=== PATIENT | female | born 1930 | race Caucasian/White ===

== ENCOUNTER 2017-09-19 21:03 | Emergency (ER) | payer MEDICARE ==
[2017-09-19] MEDS ORDERED: diPHENhydraMINE PO* 25 MG PO ONE (21:27)
--- NOTE | 2017-09-19 21:51 | ED ---
Allergic Reaction/Systemic - HPI Summary HPI Summary: Patient is an otherwise healthy 87-year-old female with no known allergies and takes no medications presenting to the ED with left lower lip swelling 2 hours. She states she took 400 mg ibuprofen approximately 3 hours prior to the lip swelling as well as cranberry juice, but denies anything else. She states she is taking ibuprofen before but has been several months to years. Last time she took cranberry juice was approximately 70 years ago. She denies any new environments, lotions, lipsticks or other topicals. She states she first felt her throat feeling scratchy and approximately 1 hour after this she developed the lower lip swelling. Denies any difficulty swallowing or shortness of breath. Denies any hives or urticaria. Son is at bedside. - History of Current Complaint Chief Complaint: EDAllergicReaction Time Seen by Provider: 09/19/17 21:12 Hx Obtained From: Patient Onset/Duration: Sudden Onset Timing: Constant Severity Initially: Mild Severity Currently: Mild Pain Intensity: 0 Pain Scale Used: 0-10 Numeric Character: Swelling - lower lip Associated Signs And Symptoms: Positive: Negative - Related Hx Possible Reaction To: Unknown - Allergies/Home Medications Allergies/Adverse Reactions: Allergies Allergy/AdvReac Type Severity Reaction Status Date / Time cranberry Allergy Unknown Verified 09/19/17 21:10 Reaction Details Home Medications: Home Medications NK [No Home Medications Reported] 09/19/17 [History Confirmed 09/19/17] PMH/Surg Hx/FS Hx/Imm Hx Previously Healthy: Yes - Surgical History Surgery Procedure, Year, and Place: Lower Back surgery - Immunization History Hx Pertussis Vaccination: No Immunizations Up to Date: Unable to Obtain/Confirm Infectious Disease History: No Infectious Disease History: Denies: History Other Infectious Disease, Traveled Outside the [place] in Last 30 Days - Social History Occupation: Unemployed Lives: With Family Alcohol Use: None Hx Substance Use: No Substance Use Type: Reports: None Hx Tobacco Use: No Smoking Status (MU): Never Smoked Tobacco Review of Systems Constitutional: Negative Negative: Fever, Chills, Fatigue, Skin Diaphoresis ENT: Other - lower lip swelling Negative: Palpitations, Chest Pain Negative: Shortness Of Breath, Cough Negative: Abdominal Pain, Vomiting, Diarrhea Genitourinary: Negative Positive: no symptoms reported, see HPI Musculoskeletal: Negative Skin: Negative Negative: Headache, Weakness, Paresthesia, Numbness All Other Systems Reviewed And Are Negative: Yes Physical Exam Triage Information Reviewed: Yes Vital Signs On Initial Exam: Initial Vitals Temp Pulse Resp BP Pulse Ox 98.3 F 78 18 163/78 96 09/19/17 21:05 09/19/17 21:05 09/19/17 21:05 09/19/17 21:05 09/19/17 21:05 Vital Signs Reviewed: Yes Appearance: Positive: Well-Appearing, Well-Nourished Skin: Positive: Warm, Skin Color Reflects Adequate Perfusion Head/Face: Positive: Normal Head/Face Inspection Eyes: Positive: Normal, SHARONDA, Conjunctiva Clear ENT: Positive: Other - lower lip swelling without tongue swelling; airway patent Neck: Positive: Supple, No Lymphadenopathy Respiratory/Lung Sounds: Positive: Clear to Auscultation, Breath Sounds Present Cardiovascular: Positive: Normal, RRR, Pulses are Symmetrical in both Upper and Lower Extremities Neurological: Positive: Normal, Sensory/Motor Intact, Alert, Oriented to Person Place, Time, Speech Normal Psychiatric: Positive: Normal, Affect/Mood Appropriate Diagnostics - Vital Signs Vital Signs Temp Pulse Resp BP Pulse Ox 09/19/17 21:05 98.3 F 78 18 163/78 96 - Laboratory Lab Statement: Any lab studies that have been ordered have been reviewed, and results considered in the medical decision making process. Allergic Reaction Course/Dx - Course Course Of Treatment: During the course of treatment, the patient is evaluated for lower lip swelling. She states she took ibuprofen approximately 3 hours prior to the lip swelling. She also endorses some throat scratching. Denies any dysphagia, odynophagia or shortness of breath. On physical examination, pharynx normal, airway patent, lungs CTA. RRR. She says she takes no medications at baseline. She has taken ibuprofen in the past, but nothing current. By the time of arrival, son states the lip swelling has decreased significantly in size, however patient states she is still feeling some slight scratching to the throat, however this is improved over the past few hours. She did not take any medication for relief [employer]IST[employer]. She is given 25mg benadryl on arrival. Approximately one hour after the Benadryl medication, patient is feeling much improved with reduction in the lip swelling. As NSAIDs are generally known to cause angioedema and several individuals, I have asked her to avoid this medication the future. She will return for any worsening or changing symptoms. - Diagnoses Differential Diagnosis/HQI/PQRI: Positive: Anaphylaxis, Angioedema, Local Allergic Reaction Provider Diagnoses: Angioedema Discharge - Sign-Out/Discharge Documenting (check all that apply): Discharge/Admit/Transfer - Discharge Plan Condition: Stable Disposition: HOME Patient Education Materials: Angioedema (ED) Referrals: No Primary Care Phys,NOPCP [Primary Care Provider] - - Billing Disposition and Condition Condition: STABLE Disposition: Home
[2017-09-19 22:52] VITALS: BP 128/74
== END 2017-09-19 22:51 | disposition home or self-care (01) ==
LOC: ED 21:03
DX: T78.3XXA Angioneurotic edema, initial encounter (principal)
CPT/HCPCS: 99282; A9270-GY

== ENCOUNTER 2018-03-29 14:37 | Inpatient (IN) | payer MEDICARE ==
[2018-03-29 18:21] LABS: ABS Basophils 0 10^3/ul (0-0.2); ABS Eosinophils 0 10^3/ul (0-0.6); ABS Lymphocytes 0.9 10^3/ul (1.0-4.8); ABS Monocytes 0.5 10^3/ul (0-0.8); ABS Neutrophils 4.3 10^3/ul (1.5-7.7); ABS Nucleated RBC 0 10^3/ul; Eosinophil % 0.5 %; Hematocrit 42 % (35-47); Hemoglobin 13.9 g/dl (12.0-16.0); Lymphocyte % 15.5 %; Mean Corpuscular HGB Conc 33 g/dl (31-36); Mean Corpuscular Hemoglobin 29 pg (27-31); Mean Corpuscular Volume 87 fL (80-97); Mean Platelet Volume 7.9 fL (7.4-10.4); Nucleated Red Blood Cells % 0.1; Platelet Count 320 10^3/ul (150-450); Red Blood Count 4.78 10^6/ul (4.00-5.40); Red Cell Distribution Width 14 % (10.5-15); White Blood Count 5.7 10^3/ul (3.5-10.8)
[2018-03-29 18:38] LABS: Troponin I 0.02 ng/mL (<0.04)
[2018-03-29 18:41] LABS: Albumin/Globulin Ratio 1.3 (1-3); BUN/Creatinine Ratio 30.3 (8-20); Calcium 9.7 mg/dL (8.6-10.3); EGFR African American 86.9 (>60); EGFR Non-African American 71.8 (>60); Potassium 3.6 mmol/L (3.5-5.0); Total Bilirubin 0.9 mg/dL (0.2-1.0)
[2018-03-29 18:50] LABS: TSH (Thyroid Stimulating Horm) 16.84 mcIU/mL (0.34-5.60)
[2018-03-29] MEDS ORDERED: Gadoteridol* (CONTRAST) 279.3 MG/ML 10 ML IV ONE (18:54)
[2018-03-29] MEDS ORDERED: NS 0.9% 1000 ML* 1,000 ML IV ONE (19:12)
[2018-03-29 19:41] LABS: C Reactive Protein 42.07 mg/L (<8.01)
[2018-03-29 20:09] LABS: Urine Appearance Cloudy; Urine Bacteria 3+ (Absent); Urine Bilirubin Negative (Negative); Urine Blood 1+ (Negative); Urine Color Yellow; Urine Glucose Negative (Negative); Urine Ketones Negative (Negative); Urine Nitrite Negative (Negative); Urine Protein 1+(30 mg/dL) (Negative); Urine Red Blood Cell 1+(3-5/hpf) (Absent); Urine Specific Gravity 1.015 (1.010-1.030); Urine Squamous Epithelial Cell Present (Absent); Urine Urobilinogen Negative (Negative); Urine White Blood Cell 3+(>20/hpf) (Absent)
[2018-03-29] MEDS ORDERED: Senna TAB PO PRN (22:40)
[2018-03-29] MEDS ORDERED: Morphine VIAL* 4 MG/ML VIAL (1 ml vial) IV PRN (22:40)
[2018-03-29] MEDS ORDERED: Cyclobenzaprine TAB* 10 MG PO PRN (22:40)
[2018-03-29] MEDS ORDERED: Ondansetron INJ* 2 MG/ML VIAL IV PRN (22:40)
[2018-03-29] MEDS ORDERED: Acetaminophen TAB* 325 MG PO PRN (22:40)
[2018-03-29] MEDS ORDERED: oxyCODONE TAB* 5 MG TAB PO PRN (22:40)
[2018-03-29] MEDS ORDERED: cefTRIAXone(*) 1 GM ADVAN/BAG ONE (22:53)
[2018-03-29] MEDS ORDERED: cefTRIAXone(*) 1 GM in NS 0.9% 50 ML* 50 ML IVPB SCH (23:00)
--- NOTE | 2018-03-29 23:40 | ED ---
Neurological HPI - HPI Summary HPI Summary: Patient sent by the CC to ED complains of bilateral lower extremity weakness and decreasing mobility 2 months. Prior to past 2 months patient ambulates at baseline with a walker. Patient states she is now unable to walk or stand up now , and has decreased sensation to left side. Patient states chronic back pain which has also increased in the past few days, controlled by ibuprofen. Family states patient has not seen PCP in 7 years. History of spinal surgery but unclear what kind. Possible history of cauda equina. Denies trauma, slurred speech, facial droop, AMS, upper extremity weakness, confusion, URIBE, fever, cough , sore throat, CP, SOB, N/V/D, abdominal pain, change in urine, change in BM. Patient does admit to urinating and defecating less as she is unable to get to the bathroom on her own. Medical history is hypothyroid, osteoporosis, back pain. - History of Current Complaint Chief Complaint: EDNeurologicalDeficit Stated Complaint: NUMBNESS IN LEGS Time Seen by Provider: 03/29/18 16:49 Hx Obtained From: Patient, Family/Accounts Payable Specialist Onset/Duration: Gradual Onset, Started weeks ago Timing: Constant Onset Severity: Moderate Current Severity: Moderate Seizure Severity: Moderate Neurological Deficit Location: RLE, LLE Pain Intensity: 5 Pain Scale Used: 0-10 Numeric Character: Weak, Paresthesia Associated Signs and Symptoms: Positive: Weakness TPA Considered: No - Allergy/Home Medications Allergies/Adverse Reactions: Allergies Allergy/AdvReac Type Severity Reaction Status Date / Time cranberry Allergy Unknown Verified 03/29/18 14:59 Reaction Details PMH/Surg Hx/FS Hx/Imm Hx Endocrine/Hematology History: Denies: Hx Diabetes Cardiovascular History: Denies: Hx Pacemaker/ICD History: Denies: Hx Dialysis Musculoskeletal History: Reports: Hx Back Problems Sensory History: Denies: Hx Eye Prosthesis, Hx Hearing Aid EENT History: Denies: Hx Deafness Neurological History: Denies: Hx Developmental Delay Psychiatric History: Denies: Hx Autism, Hx Panic Disorder - Surgical History Surgery Procedure, Year, and Place: tonsils. lsp discetomy Infectious Disease History: No Infectious Disease History: Denies: History Other Infectious Disease, Traveled Outside the [place] in Last 30 Days - Social History Alcohol Use: None Hx Substance Use: No Substance Use Type: Reports: None Hx Tobacco Use: No Smoking Status (MU): Never Smoked Tobacco Review of Systems Constitutional: Negative Eyes: Negative ENT: Negative Cardiovascular: Negative Respiratory: Negative Gastrointestinal: Negative Genitourinary: Negative Musculoskeletal: Negative Skin: Negative Positive: Weakness Psychological: Normal All Other Systems Reviewed And Are Negative: Yes Physical Exam - Summary Physical Exam Summary: Patient has positive pulses in bilateral feet. Legs are warm and soft to palpation. On tender. Positive sensation on bilateral lower extremities. Patient is able to move bilateral feet and minimally flex bilateral hips and knees. Patient cannot lift legs off the bed. Neuro exam normal. Abdomen soft nontender. No ecchymosis, erythema, swelling, deformity noted to the lower back. Triage Information Reviewed: Yes Vital Signs On Initial Exam: Initial Vitals Temp Pulse Resp BP Pulse Ox 97.9 F 86 16 128/76 94 03/29/18 14:52 03/29/18 14:52 03/29/18 14:52 03/29/18 14:52 03/29/18 14:52 Vital Signs Reviewed: Yes Appearance: Positive: Well-Appearing Skin: Positive: Warm Head/Face: Positive: Normal Head/Face Inspection Eyes: Positive: Normal ENT: Positive: Normal ENT inspection Neck: Positive: Supple Respiratory/Lung Sounds: Positive: Clear to Auscultation Cardiovascular: Positive: Normal Abdomen Description: Positive: Nontender Musculoskeletal: Positive: Normal Neurological: Positive: Normal Psychiatric: Positive: Normal AVPU Assessment: Alert - [place] Coma Scale Best Eye Response: 4 - Spontaneous Best Motor Response: 6 - Obeys Commands Best Verbal Response: 5 - Oriented Coma Scale Total: 15 Diagnostics - Vital Signs Vital Signs Temp Pulse Resp BP Pulse Ox 03/29/18 22:36 88 17 141/79 100 03/29/18 20:09 98.4 F 87 17 145/72 96 03/29/18 16:43 92 18 128/83 97 03/29/18 14:52 97.9 F 86 16 128/76 94 - Laboratory Lab Results: Lab Results 03/29/18 03/29/18 03/29/18 Range/Units 17:08 17:08 17:08 WBC 5.7 (3.5-10.8) 10^3/ul RBC 4.78 (4.00-5.40) 10^6/ul Hgb 13.9 (12.0-16.0) g/dl Hct 42 (35-47) % MCV 87 (80-97) fL MCH 29 (27-31) pg MCHC 33 (31-36) g/dl RDW 14 (10.5-15) % Plt Count 320 (150-450) 10^3/ul MPV 7.9 (7.4-10.4) fL Neut % (Auto) 74.5 % Lymph % (Auto) 15.5 % [place] % (Auto) 8.9 % Eos % (Auto) 0.5 % Baso % (Auto) 0.6 % Absolute Neuts (auto) 4.3 (1.5-7.7) 10^3/ul Absolute Lymphs (auto) 0.9 L (1.0-4.8) 10^3/ul Absolute Monos (auto) 0.5 (0-0.8) 10^3/ul Absolute Eos (auto) 0 (0-0.6) 10^3/ul Absolute Basos (auto) 0 (0-0.2) 10^3/ul Absolute Nucleated RBC 0 10^3/ul Nucleated RBC % 0.1 Sodium 139 (135-145) mmol/L Potassium 3.6 (3.5-5.0) mmol/L Chloride 102 (101-111) mmol/L Carbon Dioxide 29 (22-32) mmol/L Anion Gap 8 (2-11) mmol/L BUN 23 (6-24) mg/dL Creatinine 0.76 (0.51-0.95) mg/dL Est GFR ( Amer) 86.9 (>60) Est GFR (Non-Af Amer) 71.8 (>60) BUN/Creatinine Ratio 30.3 H (8-20) Glucose 119 H (70-100) mg/dL Lactic Acid 1.7 (0.5-2.0) mmol/L Calcium 9.7 (8.6-10.3) mg/dL Total Bilirubin 0.90 (0.2-1.0) mg/dL AST 27 (13-39) U/L ALT 14 (7-52) U/L Alkaline Phosphatase 221 H (34-104) U/L Troponin I 0.02 (<0.04) ng/mL C-Reactive Protein 42.07 H (<8.01) mg/L B-Natriuretic Peptide (<=100) pg/mL Total Protein 7.0 (6.4-8.9) g/dL Albumin 4.0 (3.2-5.2) g/dL Globulin 3.0 (2-4) g/dL Albumin/Globulin Ratio 1.3 (1-3) TSH 16.84 H (0.34-5.60) mcIU/mL Thyroxine (T4) Pending Total T3 Pending Urine Color Urine Appearance Urine pH (5-9) Ur Specific [place] (1.010-1.030) Urine Protein (Negative) Urine Ketones (Negative) Urine Blood (Negative) Urine Nitrate (Negative) Urine Bilirubin (Negative) Urine Urobilinogen (Negative) Ur Leukocyte Esterase (Negative) Urine WBC (Auto) (Absent) Urine RBC (Auto) (Absent) Ur Squamous Epith Cells (Absent) Urine Bacteria (Absent) Urine Glucose (Negative) 03/29/18 03/29/18 03/29/18 Range/Units 17:52 19:53 20:24 WBC (3.5-10.8) 10^3/ul RBC (4.00-5.40) 10^6/ul Hgb (12.0-16.0) g/dl Hct (35-47) % MCV (80-97) fL MCH (27-31) pg MCHC (31-36) g/dl RDW (10.5-15) % Plt Count (150-450) 10^3/ul MPV (7.4-10.4) fL Neut % (Auto) % Lymph % (Auto) % [place] % (Auto) % Eos % (Auto) % Baso % (Auto) % Absolute Neuts (auto) (1.5-7.7) 10^3/ul Absolute Lymphs (auto) (1.0-4.8) 10^3/ul Absolute Monos (auto) (0-0.8) 10^3/ul Absolute Eos (auto) (0-0.6) 10^3/ul Absolute Basos (auto) (0-0.2) 10^3/ul Absolute Nucleated RBC 10^3/ul Nucleated RBC % Sodium (135-145) mmol/L Potassium (3.5-5.0) mmol/L Chloride (101-111) mmol/L Carbon Dioxide (22-32) mmol/L Anion Gap (2-11) mmol/L BUN (6-24) mg/dL Creatinine (0.51-0.95) mg/dL Est GFR ( Amer) (>60) Est GFR (Non-Af Amer) (>60) BUN/Creatinine Ratio (8-20) Glucose (70-100) mg/dL Lactic Acid (0.5-2.0) mmol/L Calcium (8.6-10.3) mg/dL Total Bilirubin (0.2-1.0) mg/dL AST (13-39) U/L ALT (7-52) U/L Alkaline Phosphatase (34-104) U/L Troponin I 0.01 (<0.04) ng/mL C-Reactive Protein (<8.01) mg/L B-Natriuretic Peptide 116 H (<=100) pg/mL Total Protein (6.4-8.9) g/dL Albumin (3.2-5.2) g/dL Globulin (2-4) g/dL Albumin/Globulin Ratio (1-3) TSH (0.34-5.60) mcIU/mL Thyroxine (T4) Total T3 Urine Color Yellow Urine Appearance Cloudy Urine pH 5.0 (5-9) Ur Specific [place] 1.015 (1.010-1.030) Urine Protein 1+(30 mg/dl) A (Negative) Urine Ketones Negative (Negative) Urine Blood 1+ A (Negative) Urine Nitrate Negative (Negative) Urine Bilirubin Negative (Negative) Urine Urobilinogen Negative (Negative) Ur Leukocyte Esterase 3+ A (Negative) Urine WBC (Auto) 3+(>20/hpf) A (Absent) Urine RBC (Auto) 1+(3-5/hpf) A (Absent) Ur Squamous Epith Cells Present A (Absent) Urine Bacteria 3+ A (Absent) Urine Glucose Negative (Negative) Result Diagrams: 03/29/18 17:08 03/29/18 17:08 Lab Statement: Any lab studies that have been ordered have been reviewed, and results considered in the medical decision making process. Course/Dx - Course Course Of Treatment: Patient sent by the CC to ED complains of bilateral lower extremity weakness and decreasing mobility 2 months. Prior to past 2 months patient ambulates at baseline with a walker. Patient states she is now unable to walk or stand up now, and has decreased sensation to left side. Patient states chronic back pain which has also increased in the past few days, controlled by ibuprofen. Family states patient has not seen PCP in 7 years. History of spinal surgery but unclear what kind. Possible history of cauda equina. Denies trauma, slurred speech, facial droop, AMS, upper extremity weakness, confusion, URIBE, fever, cough, sore throat, CP, SOB, N/V/D, abdominal pain, change in urine, change in BM. Patient does admit to urinating and defecating less as she is unable to get to the bathroom on her own. Medical history is hypothyroid, osteoporosis, back pain. Physical exam:Patient has positive pulses in bilateral feet. Legs are warm and soft to palpation. On tender. Positive sensation on bilateral lower extremities. Patient is able to move bilateral feet and minimally flex bilateral hips and knees. Patient cannot lift legs off the bed. Neuro exam normal. Abdomen soft nontender. No ecchymosis, erythema, swelling, deformity noted to the lower back. Vital signs within normal limits. BUN/CR ratio of 30. TSH 16. Alkaline phosphatase 221. CRP 42. BNP 116. UA positive for possible UTI. Cultures pending. Chest x- ray concerning for mass left lower lobe. EKG sinus rhythm. Troponin negative. KUB positive for significant stable. CT brain unremarkable. MRI/MRA lumbar spine concerning for possible primary or metastatic lesion and lumbar spine. Patient admitted to hospitalists for further workup of suspicious masses, inability to ambulate. - Diagnoses Provider Diagnoses: Lower extremity weakness, Hypothyroid, Constipation Discharge - Sign-Out/Discharge Documenting (check all that apply): Patient Departure - Discharge Plan Condition: Good Disposition: ADMITTED TO [facility] - Billing Disposition and Condition Condition: GOOD Disposition: Admitted to [facility]
[2018-03-29 23:49] LABS: T4, Total 7.59 g/dL (6.09-12.23)
--- NOTE | 2018-03-30 02:10 | HP ---
CC: Dr. Librado Rey, [facility] * ADMISSION HISTORY AND PHYSICAL: DATE OF ADMISSION: 03/29/18 PRIMARY CARE PROVIDER: Currently only Dr. Librado Rey at the [facility]. MY ATTENDING WHILE IN THE HOSPITAL: Dr. Bety Gomes.* (DICTATED BY MARGUERITE MCCLELLAND) CHIEF COMPLAINT: Worsening lower extremity weakness x6 weeks. HISTORY OF PRESENT ILLNESS: Ms. Wynn is an 87-year-old female with a past medical history significant only for cauda equina syndrome in 2003 with a laminectomy and repair at that time with Dr. Treviño at this facility and hypothyroidism who in the beginning of February was able to walk with approximately 6 feet with her walker. The patient had been using a walker and had limited mobility since her 2003 surgery, but rather quickly began to deteriorate with eventually not being able to get out of bed at all. The patient also had increasing pain in her back with allodynia and pain radiating down into her upper and lower legs. The sensation of the patient's legs eventually began to deteriorate and now they feel essentially numb. The patient has been having increased difficulty with urination having bowel movements with pain and straining with bowel movements and no bowel movements for the last 3 days. The patient has been having a feeling of incomplete emptying with her urinary bladder. The patient has not been having issues with fevers, chills. The patient has not lost weight. The patient has had a good appetite. The patient had only taken ibuprofen for her pain, but she states that sometimes her pain can be severe. The patient has been taking no other routine medications. The patient has been taking several supplements. The patient has not followed with her primary care doctor in 5 to 6 years. The patient's primary caregiver is her son and her grandson who have been having to carry her recently as she has been unable to stand for herself. The patient was trying to reestablish with primary care doctor and was sent to Dr. Librado Rey at the [facility] for a transition of care and was referred to the emergency department for lower extremity weakness and flaccidity. In the emergency department, the patient had a lumbar spine MRI which showed extensive neural foraminal and spinal canal stenosis at L1 through L5 as well as a large mass at the sacroiliac joint and possible metastatic lesions in the vertebral bodies. Her chest x-ray also showed a pleural base mass. All these findings were discussed with the patient at length as well as their poor prognosis and possibly limited treatment options and the patient and family stated that they would like to have a full evaluation and possible treatment of the patient's tumors if possible. However, when this was discussed with the patient that expediting this workup would require emergency department to emergency department transfer tonight. The patient and family stated that they refuse this and would like to be admitted to this institution and be presented with options before being transferred. It was discussed with the patient that this could delay her treatment by days to weeks and result in a prolonged hospitalization and they stated they understood but they were not willing to be transferred from emergency department to emergency department tonight. As such , the patient will be admitted to the hospital. PAST MEDICAL HISTORY: 1. Cauda equina syndrome, status post laminectomy in 2003. 2. Hypothyroidism. PAST SURGICAL HISTORY: L4-L5 laminectomy in 2003. MEDICATIONS: 1. Ibuprofen 200 mg p.o. q.6 hours as needed. 2. Various supplements, the only one they came up with the name of is MitoBoost. ALLERGIES: CRANBERRIES. FAMILY HISTORY: The patient not able to elucidate on her family history. SOCIAL HISTORY: The patient is a former smoker in her teenage years. The patient denies alcohol or drug use. 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 The patient is and has only 1 child. REVIEW OF SYSTEMS: A 14-point review of systems was reviewed and is negative except as above in the HPI. Extra emphasis was placed on systemic symptoms possibly related to malignancy and none of these were present per the patient. PHYSICAL EXAMINATION GENERAL: The patient is an 87-year-old female who appears stated age, sitting comfortably in bed, in no acute distress. VITAL SIGNS: At the time of evaluation, temperature 98.4, pulse rate 87, respiratory rate 17, oxygen saturation 96% on room air, blood pressure 145/72. HEENT: Head: Normocephalic, atraumatic. Sclerae anicteric. No conjunctival injection. Nasal mucosa moist. Oral mucosa moist. No pharyngeal erythema, discharge, or exudate. NECK: Supple, nontender. No lymphadenopathy. No carotid bruit auscultated. No JVD. No spinous process tenderness. RESPIRATORY: Clear to auscultation bilaterally. No wheezes, rales, or rhonchi. Good air exchange bilaterally. CARDIAC: Regular rate and rhythm. Grade 2/6 systolic ejection murmur heard best at the right upper sternal border. Pulses 2+ in the bilateral dorsalis pedis, posterior tibialis, and radial areas. A 1+ bilateral lower extremity edema. ABDOMEN: Soft, tender to palpation in the bilateral upper quadrants. No rebound or guarding. No rigidity. GENITOURINARY: No suprapubic or CVA tenderness. NEUROLOGIC: Cranial nerves II through XII intact. Strength 5/5 in bilateral upper extremities distally and proximally, strength 0/5 in the bilateral lower extremities distally, strength 2/5 in the left lower extremity with flexion. No other movement is able to be elicited from the bilateral lower extremities. The patient has involuntary spasm which occurs in her right lower extremity. Reflexes 2+ in bilateral biceps areas, reflexes unable to be elicited in the bilateral patellar or Achilles areas. Babinski sign is upgoing in the left lower extremity, unable to be elicited in the right lower extremity. Alert and oriented x3. PSYCHIATRIC: Pleasant and cooperative. SKIN: Senile purpura and no other rashes. DIAGNOSTIC STUDIES/LAB DATA: White blood cell count 5.7, hemoglobin 13.9, platelet count 320. Sodium 139, potassium 3.6, chloride 102, carbon dioxide 29 , anion gap 8, BUN 23, creatinine 0.76, glucose 119, lactic acid 1.7, calcium 9.7. Bilirubin 0.9, AST 27, ALT 14, alkaline phosphatase 221. Troponin I 0.02 , repeat 0.01. CRP 42.07. BNP 116. Total protein 7.0, albumin 4.7, globulin 3.0, TSH 16.84. Urine is yellow cloudy, 1+ protein, 1+ blood, 3+ leukocyte esterase, 2+ white blood cells, 1+ red blood cells, positive squamous and epithelial cells, 3+ glucose. Studies: Brain CT read as no evidence of acute intracranial abnormality. Chest x-ray read as there is a pleural base mass present in the left lung base, recommend a CT of the chest with contrast for further evaluation. Electrocardiogram shows normal sinus rhythm. No ST-segment abnormalities, left axis deviation, incomplete right bundle-branch block. No hypertrophy or enlargement, rate of 87, QTc of 492. Lumbar spine MRI read as abnormal signal at T9 and L4 vertebrae concerning for metastatic disease; large lesion of the left iliac and sacroiliac joint measuring 4.9 x 5.3 cm, enhancement likely representing metastatic versus probably a bone tumor like sarcoma. Multilevel severe degenerative disk disease with neural foraminal narrowing, severe bilateral neural foraminal narrowing at L1-L2, severe right and [id number] left and at L3 severe bilateral L3-L4, L4-L5, mild right and moderate left at L5-S1, severe spinal canal stenosis at L1-L2, L2-L3, L3- L4, moderate at L4-L5. Abdominal x-ray read as large amount of retained stool, severe osteoarthritic change in the right hip. ASSESSMENT AND PLAN: Impression: Ms. Wynn is an 87-year-old female with past medical history significant only for cauda equina syndrome with L4-L5 laminectomy in 2003 as well as hypothyroidism who has not obtained medical care in several years and has had worsening weakness in her lower extremities for 6 weeks who presented today for evaluation of bilateral lower extremity flaccid paralysis and was found to have severe disk disease in the lumbar spine as well as a large sacroiliac mass and possible metastasis of the vertebral bodies, who will be admitted to the hospital for further evaluation of these abnormalities and possible intervention as indicated. 1. Bilateral lower extremity flaccid paralysis. This has been discussed with Dr. Edis Cornejo of Neurosurgery, who stated that even given the patient's disk disease in the lumbar spine, bilateral flaccid paralysis was likely due to cervical or thoracic disease and recommended MRI of these areas and we will see the patient in consultation. The patient has moderate pain at this time, which will be controlled with opiates and non-opiate pain control medications. Given the duration of the patient's symptoms, it is unlikely that surgical intervention will be beneficial in this case. However, it has been discussed with the family and they stated they would like to be evaluated by the neurosurgeon for any possibility of recovery in her lower extremity functioning. Physical Therapy and Occupational Therapy consultations will be deferred until neurosurgical evaluation. 2. 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 The patient has a large tumor in the sacroiliac joint as well as possible metastasis in the vertebral bodies. The patient has a pleural-based mass also on her chest x-ray which could possibly be the primary tumor or another metastatic tumor. A consult has been placed with Oncology to have recommendations for further testing and recommendations for any possible treatments that could be attempted. It has been discussed the poor prognosis of these findings, slightly grim nature of these findings and the family has stated that they would be interested in life- prolonging treatment as much as available, however, when offered transfer to a higher level of care for expedited evaluation by a musculoskeletal oncologist, the family and the patient declined and wanted to hear further options at this institution first before undergoing this transfer. It was discussed with the patient and the family that this could very likely delay her treatment of this severe disease by days to weeks and they stated they understood and this was still that the course they would like to undertake. The patient will have pain control as above. He will be seen in consultation by Orthopedics and Oncology in the morning to develop the treatment plan. 3. Hypothyroidism. The patient has severely elevated TSH. The patient has not taken her Synthroid in years. The patient will be started on 75 mcg daily of Synthroid and thus her TSH should be repeated in several weeks if indicated. T3 and T4 will be added on. 4. DVT prophylaxis. The patient will have heparin subcu. The patient is a high risk for DVT. 5. Fluids, electrolytes, nutrition. The patient will have heart-healthy diet without caffeine. The patient is normotensive and will not be given fluids at this time. 6. Disposition. The patient is admitted inpatient with length of stay greater than 2 days expected. TIME SPENT: Approximately 90 minutes were spent on the admission of this patient, 45 of which was spent [id number], obtaining history and physical and discussing treatment plan. The plan has been discussed with my attending, Dr. Bety Gomes, and she is in agreement. MARGUERITE MCCLELLAND [id number]/[facility] #: [id number] GIUSEPPE
[2018-03-30] MEDS: Levothyroxine TAB* 75 MCG TAB PO SCH (05:40)
[2018-03-30] MEDS: Heparin VIAL(*) 5000 UNITS/ML VIAL (FIVE THOUSAND) SUBCUT SCH ×3 (05:41→21:15)
[2018-03-30 07:00] LABS: ABS Basophils 0 10^3/ul (0-0.2); ABS Eosinophils 0 10^3/ul (0-0.6); ABS Lymphocytes 1.1 10^3/ul (1.0-4.8); ABS Monocytes 0.4 10^3/ul (0-0.8); ABS Nucleated RBC 0 10^3/ul; Eosinophil % 0.8 %; Hematocrit 35 % (35-47); Hemoglobin 11.6 g/dl (12.0-16.0); Lymphocyte % 24.1 %; Mean Corpuscular HGB Conc 34 g/dl (31-36); Mean Corpuscular Hemoglobin 29 pg (27-31); Mean Corpuscular Volume 87 fL (80-97); Mean Platelet Volume 8.2 fL (7.4-10.4); Nucleated Red Blood Cells % 0.1; Platelet Count 245 10^3/ul (150-450); Red Cell Distribution Width 14 % (10.5-15); White Blood Count 4.6 10^3/ul (3.5-10.8)
[2018-03-30 07:15] LABS: BUN/Creatinine Ratio 30.3 (8-20); Calcium 8.9 mg/dL (8.6-10.3); EGFR African American 102.3 (>60); EGFR Non-African American 84.5 (>60); Magnesium 2.1 mg/dL (1.9-2.7); Potassium 3.8 mmol/L (3.5-5.0)
--- NOTE | 2018-03-30 07:52 | PN ---
Progress Note - Progress Note Date of Service: 03/30/18 SOAP: Subjective: []Patient seen and examined,MRI from last PM reviewed. She is a difficult historian but has been unable to ambulate for at least two weeks. She complains of mid back pain.She has numbness in both legs and occasionally her hands. Objective: []T8 sensory level Flaccid LE's with upgoing toes Areflexic Assessment: []She likely has a thoracic issue,lumbar stenosis would not present with paralysis Plan: []MRI of T spine,C spine recommended. Not sure she would benefit from surgery at this point.
[2018-03-30] MEDS: Docusate CAP* 100 MG PO SCH ×2 (09:34→21:15)
[2018-03-30] MEDS: Polyethylene Glycol 3350* 17 GM PACKET PO PRN (09:34)
[2018-03-30] MEDS: Ibuprofen TAB* 400 MG PO PRN (09:46)
[2018-03-30] MEDS ORDERED: Gadoteridol* (CONTRAST) 279.3 MG/ML 10 ML IV ONE (12:12)
--- NOTE | 2018-03-30 18:10 | PN ---
Subjective Date of Service: 03/30/18 Interval History: Patient continues to c/o of inability to move her legs, reports denies chest pain or shortness of breath. Patient and son report that patient has not been able to move her legs since january and that it is becoming progressively worse. Patient states that approximately 2 weeks ago she lost the sensation in her legs. Denies n/v/d. denies abd pain Family History: Unchanged from Admission Social History: Unchanged from Admission Past Medical History: Unchanged from Admission Objective Active Medications: Acetaminophen (Tylenol Tab*) 650 mg PO Q6H PRN PRN Reason: FEVER/PAIN Cyclobenzaprine HCl (Flexeril Tab*) 10 mg PO TID PRN PRN Reason: SPASMS Docusate Sodium (Colace Cap*) 100 mg PO BID [facility] Last Admin: 03/30/18 09:34 Dose: 100 mg Heparin Sodium (Porcine) (Heparin Vial(*)) 5,000 units SUBCUT Q8HR [facility] Last Admin: 03/30/18 14:47 Dose: 5,000 units Ceftriaxone Sodium 1 gm/ (Sodium Chloride) 50 mls @ 200 mls/hr IVPB 2300 [facility] Ibuprofen (Motrin Tab*) 400 mg PO Q6H PRN PRN Reason: PAIN Last Admin: 03/30/18 09:46 Dose: 400 mg Levothyroxine Sodium (Synthroid Tab*) 75 mcg PO DAILY@0600 [facility] Last Admin: 03/30/18 05:40 Dose: 75 mcg Morphine Sulfate (Morphine Vial*) 1 mg IV Q4H PRN PRN Reason: SEVERE PAIN Last Admin: 03/29/18 23:52 Dose: 1 mg Ondansetron HCl (Zofran Inj*) 4 mg IV Q6H PRN PRN Reason: NAUSEA Oxycodone HCl (Roxycodone Tab*) 5 mg PO Q4H PRN PRN Reason: PAIN - MODERATE Last Admin: 03/30/18 00:42 Dose: 5 mg Polyethylene Glycol/Electrolytes (Miralax*) 17 gm PO DAILY PRN PRN Reason: CONSTIPATION Last Admin: 03/30/18 09:34 Dose: 17 gm Senna (Senokot Tab*) 1 tab PO BEDTIME PRN PRN Reason: CONSTIPATION Vital Signs - 8 hr 03/30/18 15:22 Temperature 97.5 F Pulse Rate 71 Respiratory 16 Rate Blood Pressure 93/52 (mmHg) O2 Sat by Pulse 99 Oximetry Oxygen Devices in Use Now: None Appearance: alert and oriented x 3 , no acute distress Eyes: No Scleral Icterus Ears/Nose/Mouth/Throat: Clear Oropharnyx, Mucous Membranes Moist Neck: NL Appearance and Movements; NL JVP, Trachea Midline Respiratory: Symmetrical Chest Expansion and Respiratory Effort, Clear to Auscultation Cardiovascular: NL Sounds; No Murmurs; No JVD, No Edema Abdominal: NL Sounds; No Tenderness; No Distention Extremities: No Edema, No Clubbing, Cyanosis Skin: No Rash or Ulcers Neurological: Alert and Oriented x 3 Nutrition: Taking PO's Result Diagrams: 03/30/18 06:35 03/30/18 06:35 Additional Lab and Data: Lab Results 03/29/18 03/29/18 03/29/18 Range/Units 17:08 17:08 17:08 WBC 5.7 (3.5-10.8) 10^3/ul RBC 4.78 (4.00-5.40) 10^6/ul Hgb 13.9 (12.0-16.0) g/dl Hct 42 (35-47) % MCV 87 (80-97) fL MCH 29 (27-31) pg MCHC 33 (31-36) g/dl RDW 14 (10.5-15) % Plt Count 320 (150-450) 10^3/ul MPV 7.9 (7.4-10.4) fL Neut % (Auto) 74.5 % Lymph % (Auto) 15.5 % [place] % (Auto) 8.9 % Eos % (Auto) 0.5 % Baso % (Auto) 0.6 % Absolute Neuts (auto) 4.3 (1.5-7.7) 10^3/ul Absolute Lymphs (auto) 0.9 L (1.0-4.8) 10^3/ul Absolute Monos (auto) 0.5 (0-0.8) 10^3/ul Absolute Eos (auto) 0 (0-0.6) 10^3/ul Absolute Basos (auto) 0 (0-0.2) 10^3/ul Absolute Nucleated RBC 0 10^3/ul Nucleated RBC % 0.1 Sodium 139 (135-145) mmol/L Potassium 3.6 (3.5-5.0) mmol/L Chloride 102 (101-111) mmol/L Carbon Dioxide 29 (22-32) mmol/L Anion Gap 8 (2-11) mmol/L BUN 23 (6-24) mg/dL Creatinine 0.76 (0.51-0.95) mg/dL Est GFR ( Amer) 86.9 (>60) Est GFR (Non-Af Amer) 71.8 (>60) BUN/Creatinine Ratio 30.3 H (8-20) Glucose 119 H (70-100) mg/dL Lactic Acid 1.7 (0.5-2.0) mmol/L Calcium 9.7 (8.6-10.3) mg/dL Total Bilirubin 0.90 (0.2-1.0) mg/dL AST 27 (13-39) U/L ALT 14 (7-52) U/L Alkaline Phosphatase 221 H (34-104) U/L Troponin I 0.02 (<0.04) ng/mL C-Reactive Protein 42.07 H (<8.01) mg/L B-Natriuretic Peptide (<=100) pg/mL Total Protein 7.0 (6.4-8.9) g/dL Albumin 4.0 (3.2-5.2) g/dL Globulin 3.0 (2-4) g/dL Albumin/Globulin Ratio 1.3 (1-3) TSH 16.84 H (0.34-5.60) mcIU/mL Thyroxine (T4) Pending Total T3 Pending Urine Color Urine Appearance Urine pH (5-9) Ur Specific Hagan (1.010-1.030) Urine Protein (Negative) Urine Ketones (Negative) Urine Blood (Negative) Urine Nitrate (Negative) Urine Bilirubin (Negative) Urine Urobilinogen (Negative) Ur Leukocyte Esterase (Negative) Urine WBC (Auto) (Absent) Urine RBC (Auto) (Absent) Ur Squamous Epith Cells (Absent) Urine Bacteria (Absent) Urine Glucose (Negative) 03/29/18 03/29/18 03/29/18 Range/Units 17:52 19:53 20:24 WBC (3.5-10.8) 10^3/ul RBC (4.00-5.40) 10^6/ul Hgb (12.0-16.0) g/dl Hct (35-47) % MCV (80-97) fL MCH (27-31) pg MCHC (31-36) g/dl RDW (10.5-15) % Plt Count (150-450) 10^3/ul MPV (7.4-10.4) fL Neut % (Auto) % Lymph % (Auto) % [place] % (Auto) % Eos % (Auto) % Baso % (Auto) % Absolute Neuts (auto) (1.5-7.7) 10^3/ul Absolute Lymphs (auto) (1.0-4.8) 10^3/ul Absolute Monos (auto) (0-0.8) 10^3/ul Absolute Eos (auto) (0-0.6) 10^3/ul Absolute Basos (auto) (0-0.2) 10^3/ul Absolute Nucleated RBC 10^3/ul Nucleated RBC % Sodium (135-145) mmol/L Potassium (3.5-5.0) mmol/L Chloride (101-111) mmol/L Carbon Dioxide (22-32) mmol/L Anion Gap (2-11) mmol/L BUN (6-24) mg/dL Creatinine (0.51-0.95) mg/dL Est GFR ( Amer) (>60) Est GFR (Non-Af Amer) (>60) BUN/Creatinine Ratio (8-20) Glucose (70-100) mg/dL Lactic Acid (0.5-2.0) mmol/L Calcium (8.6-10.3) mg/dL Total Bilirubin (0.2-1.0) mg/dL AST (13-39) U/L ALT (7-52) U/L Alkaline Phosphatase (34-104) U/L Troponin I 0.01 (<0.04) ng/mL C-Reactive Protein (<8.01) mg/L B-Natriuretic Peptide 116 H (<=100) pg/mL Total Protein (6.4-8.9) g/dL Albumin (3.2-5.2) g/dL Globulin (2-4) g/dL Albumin/Globulin Ratio (1-3) TSH (0.34-5.60) mcIU/mL Thyroxine (T4) Total T3 Urine Color Yellow Urine Appearance Cloudy Urine pH 5.0 (5-9) Ur Specific [place]agan 1.015 (1.010-1.030) Urine Protein 1+(30 mg/dl) A (Negative) Urine Ketones Negative (Negative) Urine Blood 1+ A (Negative) Urine Nitrate Negative (Negative) Urine Bilirubin Negative (Negative) Urine Urobilinogen Negative (Negative) Ur Leukocyte Esterase 3+ A (Negative) Urine WBC (Auto) 3+(>20/hpf) A (Absent) Urine RBC (Auto) 1+(3-5/hpf) A (Absent) Ur Squamous Epith Cells Present A (Absent) Urine Bacteria 3+ A (Absent) Urine Glucose Negative (Negative) Microbiology and Other Data: Microbiology 03/29/18 19:53 Urine Culture - Preliminary Urine Escherichia Coli Assess/Plan/Problems-Billing Assessment: Ms. Wynn is an 87 y.o female with past medical hx of hypothyroid and cauda equina syndrome in 2003 , s/p laminectomy who presented to the emergency room with lower extremities that were flaccid and back pain. - Patient Problems (1) Metastatic breast cancer Current Visit: Yes Status: Acute Code(s): C50.919 - MALIGNANT NEOPLASM OF UNSP SITE OF UNSPECIFIED FEMALE BREAST SNOMED Code(s): 219160018 Comment: Dr. Servin consulted - Patient with multiple bone lesions and large left breast lesion (2) Lower extremity dysfunction Current Visit: Yes Status: Acute Code(s): R29.898 - OTH SYMPTOMS AND SIGNS INVOLVING THE MUSCULOSKELETAL SYSTEM SNOMED Code(s): 909724613 Comment: - suspect this is related to metastatic disease - neurosurgery consulted (3) UTI (urinary tract infection) Current Visit: Yes Status: Acute Comment: Urine culture with e coli - will continue ceftriaxone (4) DVT prophylaxis Current Visit: Yes Status: Acute Code(s): AIJ8609 - SNOMED Code(s): 980186517 (5) DNR (do not resuscitate) Current Visit: Yes Status: Acute (6) Hypothyroid Current Visit: Yes Status: Acute Code(s): E03.9 - HYPOTHYROIDISM, UNSPECIFIED SNOMED Code(s): 33715545 Comment: tsh 16 -
[2018-03-30] MEDS: Dexamethasone IV* 4 MG/ML 1 ML (4 MG) IV SLOW PU SCH (21:15)
[2018-03-30] MEDS: cefTRIAXone(*) 1 GM in NS 0.9% 50 ML* 50 ML IVPB SCH (22:50)
--- NOTE | 2018-03-31 04:05 | CONS ---
MEDICAL ONCOLOGY CONSULTATION NOTE: DATE OF CONSULT: 03/30/18 REASON FOR CONSULT: Multiple bony lesions suspicious for malignancy. Subsequent finding of breast mass and metastatic carcinoma. HISTORY OF PRESENT ILLNESS: Mrs. Wynn is an 87-year-old female with a history of cauda equina syndrome in 2003. She underwent a laminectomy with Dr. Yoel Treviño at [facility] at that time. She reports that her pain significantly improved after that, but her walking did not significantly improve. She has been using a walker for the past 14 years. She has walked only some short distances over most of that period of time. She lives with her son, who is her primary caregiver. Approximately 6 weeks ago, the patient developed increasing weakness in her extremities and was no longer able to be ambulatory. Recently, she has been essentially carried to the bathroom by her son. More recently, she has also developed numbness in the lower extremities. She has had difficulty with continence of both urine and stool. She does not have a recent primary care physician and was seen by Dr. Librado Rey at [facility] and then sent to the emergency room. There, she had an MRI scan of the lumbar spine, which revealed a large mass in the sacroiliac joint as well as metastatic lesions in multiple vertebrae including T9 and L4. On chest x-ray, there was a question of a pleural- based mass, but on physical exam , this is more likely involving a rib. It was initially discussed with the patient potential transfer by the hospitalist service, the decision was made to admit her and to have an expedited workup. Situation was discussed with Dr. Cornejo of neurosurgery, who felt that the lesions seen in the pelvis and lumbar spine were not sufficient to explain her degree of weakness and numbness and recommended an MRI of the C- and T-spine. When I first walked into the room this morning, the patient was about to be wheeled down for MRI scan, so I discussed the situation with her son and grandson while the MRI was being performed. They provided the above history. Subsequent to her MRI scan of the cervical and thoracic spine, the patient was seen and examined and further history taken from her. On my finding a mass in her left breast and inverted nipple on that side, she reported that that mass has been present for 8 to 10 years and she was not sure if it is significantly changed. Her son reported he had only first noticed it yesterday while trying to help her move about. MRI scan of the T-spine reveals abnormal signal and enhancement within the T6 vertebra extending into the posterior elements with loss of the vertebral body height, epidural extension of the tumor resulting in severe narrowing of the central canal at that level, also extending into the posterior elements of T5. In addition, there is osseous metastatic disease in the lateral mass of C1 and as noted above, also disease present in the T9 vertebral body. PAST MEDICAL HISTORY: L4-5 laminectomy in 2003, cauda equina syndrome, history of hypothyroidism. No hypertension, diabetes, MD, or CVA. MEDICATIONS: Ibuprofen 200 mg once a day. No other medications. ALLERGIES: No medical allergies. FAMILY HISTORY: Noncontributory. SOCIAL HISTORY: The patient is a retired teacher. She lives with her son. She is a former smoker, but has not smoked in about 60 years. No significant alcohol or drug use. REVIEW OF SYSTEMS: No significant recent infections. No significant headaches or neurologic complaints in the upper extremities. No significant shortness of breath, chest pain, or palpitations. No significant heartburn or reflux. Bowels and bladder as discussed above. Neurologic as discussed above. Emotionally, the patient reports that she is doing well. PHYSICAL EXAM: An 87-year-old female, lying comfortably in bed, reports that she is in severe pain with any movement, but is comfortable at rest. Vital Signs: Blood pressure 140/70, pulse 90, afebrile. HEENT: PERRL, EOMI. No erythema or exudates. No scleral icterus. Neck: Supple. No palpable cervical , supraclavicular or axillary adenopathy. Lungs: Clear. Heart: 2/6 systolic ejection murmur. Breasts: Large 4 to 5 cm mass just above the nipple on the left with inverted nipple on this side. Right breast without masses or changes. Abdomen: Soft, nontender without masses or organomegaly. There is a mass present in the left upper lateral rib cage just underneath the axilla, which is slightly tender. The patient is kept lying in bed and back is not examined. Neurologic Exam: Cranial nerves III through XII are intact. Motor is 5/5 in the upper extremities. Lower extremities with no movement at all on the left. Right with minimal movement of the toes. Babinski's are bilaterally up. DIAGNOSTIC STUDIES/LAB DATA: CBC with a white count of 5700, hemoglobin 13.9, platelet count 320,000 with normal differential. Chemistries: Sodium 139, potassium 3.6, chloride 102, bicarb 29, BUN 23, creatinine 0.76, glucose 119, calcium 9.7. LFTs normal, except alkaline phosphatase elevated at 221. CRP elevated at 42. TSH elevated at 16.8. CT of the brain without significant abnormalities noted. MRI scan of the lumbar spine, cervical spine, and thoracic spine as discussed above. IMPRESSION: 1. An 87-year-old female with history of previous cauda equina syndrome and L4- 5 laminectomy 15 years ago. She had continued weakness after that, but no significant pain. More recently has developed severe pain in the midback along with marked weakness in the lower extremities to the point where she has been bedridden and unable to walk for approximately 6 weeks and has developed numbness in her lower extremities as well. Her lower extremities at this point are essentially flaccid. Situation was discussed at length with her, her son, and her grandson. It was felt that she almost certainly had metastatic breast carcinoma with extension to multiple bony sites including the pelvis, spine, and rib. Likelihood of improving neurologic function given the length of time that she has been with the marked abnormalities in her lower extremities was felt to be extremely remote. She has been evaluated by Dr. Cornejo this morning and further recommendations from him would be appreciated. I have explained to the family that further imaging with CT scan of the chest, abdomen , and pelvis would be appropriate along with an FNA of the breast mass. Radiation therapy to the midthoracic spine at the site of the most compelling abnormality on the spinal cord and where she is having her most pain would certainly be a reasonable palliative effort. If this turns out to be a metastatic breast carcinoma and is estrogen-receptor positive, it may also help her in the palliative sense to have hormone therapy. 2. Hypothyroidism. Previous history of this and not on medications recently and this should be resumed. 3. The patient has requested a DNR status and has a DNR bracelet on at the present time. [id number]/[facility] #: [id number] [facility]
[2018-03-31] MEDS: Heparin VIAL(*) 5000 UNITS/ML VIAL (FIVE THOUSAND) SUBCUT SCH ×3 (06:17→21:23)
[2018-03-31] MEDS: Levothyroxine TAB* 75 MCG TAB PO SCH (06:18)
--- NOTE | 2018-03-31 09:00 | PN ---
Progress Note - Progress Note Date of Service: 03/31/18 SOAP: Subjective: very pleasant this am. reports that pain is under good control as long as she does not move. time line a bit difficult to interpret, though she states that she has been completely immobile no longer than 2-5 days. Objective: Vital Signs Temp Pulse Resp BP Pulse Ox 97.3 F 67 20 130/83 100 03/31/18 07:32 03/31/18 07:32 03/31/18 07:59 03/31/18 07:32 03/31/18 07:32 lying flat in nad perr eomi op dry cta anteriorly s1 s2 nl 2/6 geovanna 5 cm hard left breast mass 12 o'clock, nipple inversion soft nt +bs no le edema 0/5 RLE, 1/5 LLE strength A+O x 3 U Cx: >100k e coli, fairly espinal sensitive Acetaminophen (Tylenol Tab*) 650 mg PO Q6H PRN PRN Reason: FEVER/PAIN Cyclobenzaprine HCl (Flexeril Tab*) 10 mg PO TID PRN PRN Reason: SPASMS Dexamethasone Sodium Phosphate (Decadron Iv*) 8 mg IV SLOW PU Q12HR [facility] Last Admin: 03/30/18 21:15 Dose: 8 mg Docusate Sodium (Colace Cap*) 100 mg PO BID [facility] Last Admin: 03/30/18 21:15 Dose: Not Given Heparin Sodium (Porcine) (Heparin Vial(*)) 5,000 units SUBCUT Q8HR [facility] Last Admin: 03/31/18 06:17 Dose: 5,000 units Ceftriaxone Sodium 1 gm/ (Sodium Chloride) 50 mls @ 200 mls/hr IVPB 2300 [facility] Last Admin: 03/30/18 22:50 Dose: 200 mls/hr Ibuprofen (Motrin Tab*) 400 mg PO Q6H PRN PRN Reason: PAIN Last Admin: 03/30/18 09:46 Dose: 400 mg Levothyroxine Sodium (Synthroid Tab*) 75 mcg PO DAILY@0600 [facility] Last Admin: 03/31/18 06:18 Dose: 75 mcg Morphine Sulfate (Morphine Vial*) 1 mg IV Q4H PRN PRN Reason: SEVERE PAIN Last Admin: 03/29/18 23:52 Dose: 1 mg Ondansetron HCl (Zofran Inj*) 4 mg IV Q6H PRN PRN Reason: NAUSEA Oxycodone HCl (Roxycodone Tab*) 5 mg PO Q4H PRN PRN Reason: PAIN - MODERATE Last Admin: 03/30/18 00:42 Dose: 5 mg Polyethylene Glycol/Electrolytes (Miralax*) 17 gm PO DAILY PRN PRN Reason: CONSTIPATION Last Admin: 03/30/18 09:34 Dose: 17 gm Senna (Senokot Tab*) 1 tab PO BEDTIME PRN PRN Reason: CONSTIPATION Assessment: 87 yo F w PMH of cauda equina syndrome limiting mobility, though now with diffusely metastatic breast cancer, bone only. I discussed this with Francheska at length. She is not very clear on her time line, though does seem to have a very little mobility in her left leg, which makes me wonder if there might be some small improvement with RT. I do think it would be helpful for pain control , as she is limiting her movements significantly. without evidence of visceral disease, if this was ER+ and Her 2 negative it would not be unreasonable to assume decent disease control on hormonal therapy alone. Clearly this will help determine her disposition (home vs. hospice, etc.). I did discuss case with Dr. Zamora who will see her in consultation. we will continue to follow with you
[2018-03-31] MEDS: Docusate CAP* 100 MG PO SCH ×2 (11:43→21:23)
[2018-03-31] MEDS: Dexamethasone IV* 4 MG/ML 1 ML (4 MG) IV SLOW PU SCH ×2 (11:44→21:23)
--- NOTE | 2018-03-31 16:51 | CONSULT ---
Palliative / Hospice Consult Ordering Provider: Jennifer Rey - Subjective Code Status: DNR Advance Directives Location: [facility] E[facility] Part A Completed: Yes - Dr. Eliseo HENAO Part E Completed:: No - discussed with pt and granddaughter but wants to wait for son to be there - History or Present Illness History or Present Illness: 87 yo female who had onset of weakness over the last 6wks with numbness and bladder/bowel issues. She had cauda equina syndrome in 2003 and had a laminectomy. Work up revealed metastatic breast cancer with lesions in the pelvis, rib and thoracic spine. PMH is significant for scoliosis and hypothyroidism. She has not been to a doctor in [facility]. She has been living with her son and grandson. I spoke with pt and grandaughter and then son and grandson. We discussed treatment options, hospice, AIM and PATH program. At this time they are interested in taking her home. The granddaughter has an apt on [facility] in [place] which they are planning to care for her there. They are still deciding about radiation either 1 or 5 treatments and hormone therapy option. She is not hospice eligible if she pursues the hormone therapy but can go after the radiation therapy. Family was mostly interested in talking to palliative care because they wanted to know about hospital bed and other things they will need. I did discuss the MOLST with pt but granddaughter wanted other family members to be present before she signed anything. Lab Values: Laboratory Last Values WBC 4.6 10^3/ul (3.5-10.8) 03/30/18 06:35 RBC 4.00 10^6/ul (4.00-5.40) 03/30/18 06:35 Hgb 11.6 g/dl (12.0-16.0) L 03/30/18 06:35 Hct 35 % (35-47) 03/30/18 06:35 MCV 87 fL (80-97) 03/30/18 06:35 MCH 29 pg (27-31) 03/30/18 06:35 MCHC 34 g/dl (31-36) 03/30/18 06:35 RDW 14 % (10.5-15) 03/30/18 06:35 Plt Count 245 10^3/ul (150-450) 03/30/18 06:35 MPV 8.2 fL (7.4-10.4) 03/30/18 06:35 Neut % (Auto) 64.8 % 03/30/18 06:35 Lymph % (Auto) 24.1 % 03/30/18 06:35 [place] % (Auto) 9.6 % 03/30/18 06:35 Eos % (Auto) 0.8 % 03/30/18 06:35 Baso % (Auto) 0.7 % 03/30/18 06:35 Absolute Neuts (auto) 3.0 10^3/ul (1.5-7.7) 03/30/18 06:35 Absolute Lymphs (auto) 1.1 10^3/ul (1.0-4.8) 03/30/18 06:35 Absolute Monos (auto) 0.4 10^3/ul (0-0.8) 03/30/18 06:35 Absolute Eos (auto) 0 10^3/ul (0-0.6) 03/30/18 06:35 Absolute Basos (auto) 0 10^3/ul (0-0.2) 03/30/18 06:35 Absolute Nucleated RBC 0 10^3/ul 03/30/18 06:35 Nucleated RBC % 0.1 03/30/18 06:35 Sodium 139 mmol/L (135-145) 03/30/18 06:35 Potassium 3.8 mmol/L (3.5-5.0) 03/30/18 06:35 Chloride 105 mmol/L (101-111) 03/30/18 06:35 Carbon Dioxide 29 mmol/L (22-32) 03/30/18 06:35 Anion Gap 5 mmol/L (2-11) 03/30/18 06:35 BUN 20 mg/dL (6-24) 03/30/18 06:35 Creatinine 0.66 mg/dL (0.51-0.95) 03/30/18 06:35 Est GFR ( Amer) 102.3 (>60) 03/30/18 06:35 Est GFR (Non-Af Amer) 84.5 (>60) 03/30/18 06:35 BUN/Creatinine Ratio 30.3 (8-20) H 03/30/18 06:35 Glucose 100 mg/dL (70-100) 03/30/18 06:35 Lactic Acid 1.7 mmol/L (0.5-2.0) 03/29/18 17:08 Calcium 8.9 mg/dL (8.6-10.3) 03/30/18 06:35 Magnesium 2.1 mg/dL (1.9-2.7) 03/30/18 06:35 Total Bilirubin 0.90 mg/dL (0.2-1.0) 03/29/18 17:08 AST 27 U/L (13-39) 03/29/18 17:08 ALT 14 U/L (7-52) 03/29/18 17:08 Alkaline Phosphatase 221 U/L (34-104) H 03/29/18 17:08 Troponin I 0.01 ng/mL (<0.04) 03/29/18 20:24 C-Reactive Protein 42.07 mg/L (<8.01) H 03/29/18 17:08 B-Natriuretic Peptide 116 pg/mL (<=100) H 03/29/18 17:52 Total Protein 7.0 g/dL (6.4-8.9) 03/29/18 17:08 Albumin 4.0 g/dL (3.2-5.2) 03/29/18 17:08 Globulin 3.0 g/dL (2-4) 03/29/18 17:08 Albumin/Globulin Ratio 1.3 (1-3) 03/29/18 17:08 TSH 16.84 mcIU/mL (0.34-5.60) H 03/29/18 17:08 Thyroxine (T4) 7.59 g/dL (6.09-12.23) 03/29/18 17:08 Total T3 104 ng/dL (87-178) 03/29/18 17:08 Urine Color Yellow 03/29/18 19:53 Urine Appearance Cloudy 03/29/18 19:53 Urine pH 5.0 (5-9) 03/29/18 19:53 Ur Specific [place] 1.015 (1.010-1.030) 03/29/18 19:53 Urine Protein 1+(30 mg/dl) (Negative) A 03/29/18 19:53 Urine Ketones Negative (Negative) 03/29/18 19:53 Urine Blood 1+ (Negative) A 03/29/18 19:53 Urine Nitrate Negative (Negative) 03/29/18 19:53 Urine Bilirubin Negative (Negative) 03/29/18 19:53 Urine Urobilinogen Negative (Negative) 03/29/18 19:53 Ur Leukocyte Esterase 3+ (Negative) A 03/29/18 19:53 Urine WBC (Auto) 3+(>20/hpf) (Absent) A 03/29/18 19:53 Urine RBC (Auto) 1+(3-5/hpf) (Absent) A 03/29/18 19:53 Ur Squamous Epith Cells Present (Absent) A 03/29/18 19:53 Urine Bacteria 3+ (Absent) A 03/29/18 19:53 Urine Glucose Negative (Negative) 03/29/18 19:53 - Objective Active Medications: Acetaminophen (Tylenol Tab*) 650 mg PO Q6H PRN PRN Reason: FEVER/PAIN Cyclobenzaprine HCl (Flexeril Tab*) 10 mg PO TID PRN PRN Reason: SPASMS Dexamethasone Sodium Phosphate (Decadron Iv*) 8 mg IV SLOW PU Q12HR [facility] Last Admin: 03/31/18 11:44 Dose: 8 mg Docusate Sodium (Colace Cap*) 100 mg PO BID [facility] Last Admin: 03/31/18 11:43 Dose: 100 mg Heparin Sodium (Porcine) (Heparin Vial(*)) 5,000 units SUBCUT Q8HR [facility] Last Admin: 03/31/18 15:01 Dose: 5,000 units Ceftriaxone Sodium 1 gm/ (Sodium Chloride) 50 mls @ 200 mls/hr IVPB 2300 [facility] Last Admin: 03/30/18 22:50 Dose: 200 mls/hr Ibuprofen (Motrin Tab*) 400 mg PO Q6H PRN PRN Reason: PAIN Last Admin: 03/30/18 09:46 Dose: 400 mg Levothyroxine Sodium (Synthroid Tab*) 75 mcg PO DAILY@0600 [facility] Last Admin: 03/31/18 06:18 Dose: 75 mcg Morphine Sulfate (Morphine Vial*) 1 mg IV Q4H PRN PRN Reason: SEVERE PAIN Last Admin: 03/29/18 23:52 Dose: 1 mg Ondansetron HCl (Zofran Inj*) 4 mg IV Q6H PRN PRN Reason: NAUSEA Oxycodone HCl (Roxycodone Tab*) 5 mg PO Q4H PRN PRN Reason: PAIN - MODERATE Last Admin: 03/30/18 00:42 Dose: 5 mg Polyethylene Glycol/Electrolytes (Miralax*) 17 gm PO DAILY PRN PRN Reason: CONSTIPATION Last Admin: 03/30/18 09:34 Dose: 17 gm Senna (Senokot Tab*) 1 tab PO BEDTIME PRN PRN Reason: CONSTIPATION Vital Signs: Vital Signs: Temp Pulse Resp BP Pulse Ox 97.3 F 67 20 130/83 100 03/31/18 07:32 03/31/18 07:32 03/31/18 07:59 03/31/18 07:32 03/31/18 07:32 Patient Weight: Weight 67.585 kg Intake and Output: Intake & Output 03/29/18 03/30/18 03/31/18 04/01/18 06:59 06:59 06:59 06:59 Intake Total 1200 670 240 Balance 1200 670 240 Weight 67.585 kg Intake: IV Fluids 1200 20 NS 20 IVPB 50 ceftriaxone 50 Oral 0 600 240 Other: Estimated Void Small # Voids 0 1 ADLs: Meal Record Start: 03/29/18 23: 04 Freq: DAILY@0900,1400,1800 Status: Active Protocol: Created 03/29/18 23:04 System (Rec: 03/29/18 23:04 System MED-C04) Document 03/30/18 09:00 [id number] (Rec: 03/30/18 09:26 [id number] MED-C02) Document 03/30/18 14:00 [id number] (Rec: 03/30/18 14:32 [id number] MED-C11) Document 03/30/18 18:00 [id number] (Rec: 03/30/18 18:37 [id number] MED-C09) Document 03/31/18 09:00 [id number] (Rec: 03/31/18 09:37 [id number] MED-C11) Document 03/31/18 14:00 [id number] (Rec: 03/31/18 14:30 [id number] MED-C09) Intake and Output Start: 03/29/18 23: 04 Freq: DAILY@0600,1400,2200 Status: Active Protocol: Created 03/29/18 23:04 System (Rec: 03/29/18 23:04 System MED-C04) Document 03/30/18 05:24 [id number] (Rec: 03/30/18 05:24 [id number] MED-C11) Document 03/30/18 14:00 [id number] (Rec: 03/30/18 14:32 [id number] MED-C11) Document 03/30/18 21:22 [id number] (Rec: 03/30/18 21:22 [id number] MED-C09) Document 03/31/18 05:33 [id number] (Rec: 03/31/18 05:34 [id number] MED-C09) Eyes: No Scleral Icterus Ears/Nose/Mouth/Throat: Clear Oropharnyx, Mucous Membranes Moist Neck: NL Appearance and Movements; NL JVP, Trachea Midline Cardiovascular: NL Sounds; No Murmurs; No JVD, No Edema Abdominal: NL Sounds; No Tenderness; No Distention Extremities: No Edema, No Clubbing, Cyanosis Neurological: Alert and Oriented x 3 - Assessment Assessment: 87 yo female with newly diagnosed metastatic breast cancer and spinal stenosis - Plan Consult Plan (MU): Hospice Plan: Spoke with pt and granddaughter and than with son and grandson. She would qualify for hospice with cancer diagnosis if she is not receiving treatment. My understanding is treatment at this point is palliative only but it may reduce the thoracic lesion which may help with her leg symptoms. With follow up with pt and family about MOLST form completion. Family is planning at this time to take her home and care for her but hasn't decided on the radiation and hormone therapy yet. They are still processing the diagnosis of cancer. Will work with family to get the support they need as an outpatient especially if they don't want hospice. - Time On Unit Date of Evaluation: 03/31/18 Hospice Consult Time in: 03:00 Hospice Consult Time Out: 04:30 Hospice Consult Time Total: 90 > 50% of Time Spend In Counseling or Coordinating Care: Yes
--- NOTE | 2018-03-31 16:59 | PN ---
Subjective Date of Service: 03/31/18 Interval History: No complaints overnight. patient states that back pain is currently controlled. continues to have minimal movement of the right lower extremity and no movement of the left lower ext. denies chest pain or shortness of breath. denies abd pain n/v/d. Family History: Unchanged from Admission Social History: Unchanged from Admission Past Medical History: Unchanged from Admission Objective Active Medications: Acetaminophen (Tylenol Tab*) 650 mg PO Q6H PRN PRN Reason: FEVER/PAIN Cyclobenzaprine HCl (Flexeril Tab*) 10 mg PO TID PRN PRN Reason: SPASMS Dexamethasone Sodium Phosphate (Decadron Iv*) 8 mg IV SLOW PU Q12HR [facility] Last Admin: 03/31/18 11:44 Dose: 8 mg Docusate Sodium (Colace Cap*) 100 mg PO BID [facility] Last Admin: 03/31/18 11:43 Dose: 100 mg Heparin Sodium (Porcine) (Heparin Vial(*)) 5,000 units SUBCUT Q8HR [facility] Last Admin: 03/31/18 15:01 Dose: 5,000 units Ceftriaxone Sodium 1 gm/ (Sodium Chloride) 50 mls @ 200 mls/hr IVPB 2300 [facility] Last Admin: 03/30/18 22:50 Dose: 200 mls/hr Ibuprofen (Motrin Tab*) 400 mg PO Q6H PRN PRN Reason: PAIN Last Admin: 03/30/18 09:46 Dose: 400 mg Levothyroxine Sodium (Synthroid Tab*) 75 mcg PO DAILY@0600 [facility] Last Admin: 03/31/18 06:18 Dose: 75 mcg Morphine Sulfate (Morphine Vial*) 1 mg IV Q4H PRN PRN Reason: SEVERE PAIN Last Admin: 03/29/18 23:52 Dose: 1 mg Ondansetron HCl (Zofran Inj*) 4 mg IV Q6H PRN PRN Reason: NAUSEA Oxycodone HCl (Roxycodone Tab*) 5 mg PO Q4H PRN PRN Reason: PAIN - MODERATE Last Admin: 03/30/18 00:42 Dose: 5 mg Polyethylene Glycol/Electrolytes (Miralax*) 17 gm PO DAILY PRN PRN Reason: CONSTIPATION Last Admin: 03/30/18 09:34 Dose: 17 gm Senna (Senokot Tab*) 1 tab PO BEDTIME PRN PRN Reason: CONSTIPATION Oxygen Devices in Use Now: None Appearance: appears comfortable resting in bed , no acute distressed Eyes: No Scleral Icterus Ears/Nose/Mouth/Throat: Clear Oropharnyx, Mucous Membranes Moist Neck: NL Appearance and Movements; NL JVP, Trachea Midline Respiratory: Symmetrical Chest Expansion and Respiratory Effort, Clear to Auscultation Cardiovascular: NL Sounds; No Murmurs; No JVD, No Edema Abdominal: NL Sounds; No Tenderness; No Distention Extremities: No Edema, No Clubbing, Cyanosis, - - left lower leg with no movement. right lower ext with very minimal movement. pedal pulses intact. Skin: No Rash or Ulcers Neurological: Alert and Oriented x 3 Nutrition: Taking PO's Result Diagrams: 03/30/18 06:35 03/30/18 06:35 Additional Lab and Data: Lab Results 03/29/18 03/29/18 03/29/18 Range/Units 17:08 17:08 17:08 WBC 5.7 (3.5-10.8) 10^3/ul RBC 4.78 (4.00-5.40) 10^6/ul Hgb 13.9 (12.0-16.0) g/dl Hct 42 (35-47) % MCV 87 (80-97) fL MCH 29 (27-31) pg MCHC 33 (31-36) g/dl RDW 14 (10.5-15) % Plt Count 320 (150-450) 10^3/ul MPV 7.9 (7.4-10.4) fL Neut % (Auto) 74.5 % Lymph % (Auto) 15.5 % [place] % (Auto) 8.9 % Eos % (Auto) 0.5 % Baso % (Auto) 0.6 % Absolute Neuts (auto) 4.3 (1.5-7.7) 10^3/ul Absolute Lymphs (auto) 0.9 L (1.0-4.8) 10^3/ul Absolute Monos (auto) 0.5 (0-0.8) 10^3/ul Absolute Eos (auto) 0 (0-0.6) 10^3/ul Absolute Basos (auto) 0 (0-0.2) 10^3/ul Absolute Nucleated RBC 0 10^3/ul Nucleated RBC % 0.1 Sodium 139 (135-145) mmol/L Potassium 3.6 (3.5-5.0) mmol/L Chloride 102 (101-111) mmol/L Carbon Dioxide 29 (22-32) mmol/L Anion Gap 8 (2-11) mmol/L BUN 23 (6-24) mg/dL Creatinine 0.76 (0.51-0.95) mg/dL Est GFR ( Amer) 86.9 (>60) Est GFR (Non-Af Amer) 71.8 (>60) BUN/Creatinine Ratio 30.3 H (8-20) Glucose 119 H (70-100) mg/dL Lactic Acid 1.7 (0.5-2.0) mmol/L Calcium 9.7 (8.6-10.3) mg/dL Total Bilirubin 0.90 (0.2-1.0) mg/dL AST 27 (13-39) U/L ALT 14 (7-52) U/L Alkaline Phosphatase 221 H (34-104) U/L Troponin I 0.02 (<0.04) ng/mL C-Reactive Protein 42.07 H (<8.01) mg/L B-Natriuretic Peptide (<=100) pg/mL Total Protein 7.0 (6.4-8.9) g/dL Albumin 4.0 (3.2-5.2) g/dL Globulin 3.0 (2-4) g/dL Albumin/Globulin Ratio 1.3 (1-3) TSH 16.84 H (0.34-5.60) mcIU/mL Thyroxine (T4) Pending Total T3 Pending Urine Color Urine Appearance Urine pH (5-9) Ur Specific [place] (1.010-1.030) Urine Protein (Negative) Urine Ketones (Negative) Urine Blood (Negative) Urine Nitrate (Negative) Urine Bilirubin (Negative) Urine Urobilinogen (Negative) Ur Leukocyte Esterase (Negative) Urine WBC (Auto) (Absent) Urine RBC (Auto) (Absent) Ur Squamous Epith Cells (Absent) Urine Bacteria (Absent) Urine Glucose (Negative) 03/29/18 03/29/18 03/29/18 Range/Units 17:52 19:53 20:24 WBC (3.5-10.8) 10^3/ul RBC (4.00-5.40) 10^6/ul Hgb (12.0-16.0) g/dl Hct (35-47) % MCV (80-97) fL MCH (27-31) pg MCHC (31-36) g/dl RDW (10.5-15) % Plt Count (150-450) 10^3/ul MPV (7.4-10.4) fL Neut % (Auto) % Lymph % (Auto) % [place] % (Auto) % Eos % (Auto) % Baso % (Auto) % Absolute Neuts (auto) (1.5-7.7) 10^3/ul Absolute Lymphs (auto) (1.0-4.8) 10^3/ul Absolute Monos (auto) (0-0.8) 10^3/ul Absolute Eos (auto) (0-0.6) 10^3/ul Absolute Basos (auto) (0-0.2) 10^3/ul Absolute Nucleated RBC 10^3/ul Nucleated RBC % Sodium (135-145) mmol/L Potassium (3.5-5.0) mmol/L Chloride (101-111) mmol/L Carbon Dioxide (22-32) mmol/L Anion Gap (2-11) mmol/L BUN (6-24) mg/dL Creatinine (0.51-0.95) mg/dL Est GFR ( Amer) (>60) Est GFR (Non-Af Amer) (>60) BUN/Creatinine Ratio (8-20) Glucose (70-100) mg/dL Lactic Acid (0.5-2.0) mmol/L Calcium (8.6-10.3) mg/dL Total Bilirubin (0.2-1.0) mg/dL AST (13-39) U/L ALT (7-52) U/L Alkaline Phosphatase (34-104) U/L Troponin I 0.01 (<0.04) ng/mL C-Reactive Protein (<8.01) mg/L B-Natriuretic Peptide 116 H (<=100) pg/mL Total Protein (6.4-8.9) g/dL Albumin (3.2-5.2) g/dL Globulin (2-4) g/dL Albumin/Globulin Ratio (1-3) TSH (0.34-5.60) mcIU/mL Thyroxine (T4) Total T3 Urine Color Yellow Urine Appearance Cloudy Urine pH 5.0 (5-9) Ur Specific [place] 1.015 (1.010-1.030) Urine Protein 1+(30 mg/dl) A (Negative) Urine Ketones Negative (Negative) Urine Blood 1+ A (Negative) Urine Nitrate Negative (Negative) Urine Bilirubin Negative (Negative) Urine Urobilinogen Negative (Negative) Ur Leukocyte Esterase 3+ A (Negative) Urine WBC (Auto) 3+(>20/hpf) A (Absent) Urine RBC (Auto) 1+(3-5/hpf) A (Absent) Ur Squamous Epith Cells Present A (Absent) Urine Bacteria 3+ A (Absent) Urine Glucose Negative (Negative) Microbiology and Other Data: Microbiology 03/29/18 19:53 Urine Culture - Preliminary Urine Escherichia Coli Assess/Plan/Problems-Billing Assessment: Ms. Wynn is an 87 y.o female with past medical hx of hypothyroid and cauda equina syndrome in 2003 , s/p laminectomy who presented to the emergency room with lower extremities that were flaccid and back pain. - Patient Problems (1) Metastatic breast cancer Current Visit: Yes Status: Acute Code(s): C50.919 - MALIGNANT NEOPLASM OF UNSP SITE OF UNSPECIFIED FEMALE BREAST SNOMED Code(s): 824050204 Comment: Dr. Servin consulted - Patient with multiple bone lesions and large left breast lesion - positive for ductal adenocarcinoma - Patient was seen in consultation by Dr. Zamora from radiation therapy about possible therapy for spine lesion - consulted palliative care -family waiting for testing results to make decision on treatment at this point (2) Lower extremity dysfunction Current Visit: Yes Status: Acute Code(s): R29.898 - OTH SYMPTOMS AND SIGNS INVOLVING THE MUSCULOSKELETAL SYSTEM SNOMED Code(s): 574517117 Comment: - suspect this is related to metastatic disease - neurosurgery consulted - waiting further recommendations (3) UTI (urinary tract infection) Current Visit: Yes Status: Acute Comment: Urine culture with e coli - will continue ceftriaxone (4) DVT prophylaxis Current Visit: Yes Status: Acute Code(s): KTM9382 - SNOMED Code(s): 761210170 (5) DNR (do not resuscitate) Current Visit: Yes Status: Acute (6) Hypothyroid Current Visit: Yes Status: Acute Code(s): E03.9 - HYPOTHYROIDISM, UNSPECIFIED SNOMED Code(s): 19376086 Comment: tsh 16 -
[2018-03-31] MEDS: cefTRIAXone(*) 1 GM in NS 0.9% 50 ML* 50 ML IVPB SCH (23:05)
[2018-04-01] MEDS: Heparin VIAL(*) 5000 UNITS/ML VIAL (FIVE THOUSAND) SUBCUT SCH ×3 (06:02→20:36)
[2018-04-01] MEDS: Levothyroxine TAB* 25 MCG TAB PO SCH (06:03)
[2018-04-01] MEDS: Ibuprofen TAB* 400 MG PO PRN (06:21)
[2018-04-01] MEDS: Docusate CAP* 100 MG PO SCH ×2 (09:31→20:37)
[2018-04-01] MEDS: Dexamethasone IV* 4 MG/ML 1 ML (4 MG) IV SLOW PU SCH ×2 (09:31→20:36)
--- NOTE | 2018-04-01 10:57 | PN ---
Progress Note - Progress Note Date of Service: 04/01/18 SOAP: Subjective: [Very pleasant. Granddaughter present. Pain is controlled at rest. She gets occasional spasms in the legs that induce pain in her back. Unable to sit upright for a significant period of time. She is not interested in escalating her pain medications. Had an extended conversation with the patient and granddaughter regarding Hospice, radiation and endocrine therapy options. ] Objective: [ Acetaminophen (Tylenol Tab*) 650 mg PO Q6H PRN PRN Reason: FEVER/PAIN Cyclobenzaprine HCl (Flexeril Tab*) 10 mg PO TID PRN PRN Reason: SPASMS Dexamethasone Sodium Phosphate (Decadron Iv*) 8 mg IV SLOW PU Q12HR [facility] Last Admin: 04/01/18 09:31 Dose: 8 mg Docusate Sodium (Colace Cap*) 100 mg PO BID [facility] Last Admin: 04/01/18 09:31 Dose: 100 mg Heparin Sodium (Porcine) (Heparin Vial(*)) 5,000 units SUBCUT Q8HR [facility] Last Admin: 04/01/18 06:02 Dose: 5,000 units Ceftriaxone Sodium 1 gm/ (Sodium Chloride) 50 mls @ 200 mls/hr IVPB 2300 [facility] Last Admin: 03/31/18 23:05 Dose: 200 mls/hr Ibuprofen (Motrin Tab*) 400 mg PO Q6H PRN PRN Reason: PAIN Last Admin: 04/01/18 06:21 Dose: 400 mg Levothyroxine Sodium (Synthroid Tab*) 25 mcg PO DAILY@0600 [facility] Last Admin: 04/01/18 06:03 Dose: 25 mcg Morphine Sulfate (Morphine Vial*) 1 mg IV Q4H PRN PRN Reason: SEVERE PAIN Last Admin: 03/29/18 23:52 Dose: 1 mg Ondansetron HCl (Zofran Inj*) 4 mg IV Q6H PRN PRN Reason: NAUSEA Oxycodone HCl (Roxycodone Tab*) 5 mg PO Q4H PRN PRN Reason: PAIN - MODERATE Last Admin: 03/30/18 00:42 Dose: 5 mg Polyethylene Glycol/Electrolytes (Miralax*) 17 gm PO DAILY PRN PRN Reason: CONSTIPATION Last Admin: 03/30/18 09:34 Dose: 17 gm Senna (Senokot Tab*) 1 tab PO BEDTIME PRN PRN Reason: CONSTIPATION Vital Signs: Temp Pulse Resp BP Pulse Ox 97.5 F 71 16 132/86 96 04/01/18 03:32 04/01/18 03:32 04/01/18 03:32 04/01/18 03:32 04/01/18 03:32 Exam: Gen: Extremely pleasant 87 yo female in NAD, accompanied by her granddaughter. HEENT: NCAT CV: RRR, 3/6 murmur appreciated Resp: LCTA Abd: soft, nonTTP Neuro: No strength or sensation of lower extremities] Assessment: [87 yo female with new diagnosis of metastatic breast cancer who presented with back pain and paraplegia. 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 The extent of metastatic disease appears to be limited to bony involvement only. Overall, patient is not interested in aggressive measures and unlikely regain significant function of her legs regardless of her path of treatment.] Plan: [1. Metastatic breast cancer - bony disease with T6 lesion causing cord compression and associated hemiplegia - ER/AK/HER2 status pending (results anticipated later today) - this will likely be a hormone positive malignancy and may receive additional palliative benefit from AI therapy - spoke with the patient at length regarding AI therapy and she is in agreement with this - will clarify with Hospice that AI therapy would not preclude her from receiving Hospice care - after extensive conversation with radiation and medical oncology as well as multiple family members, patient is agreeable to palliative radiation to T6 lesion - this will need to be completed as an inpatient due to her pain and mobility needs - likely will receive 1 fraction 2. Pain related to malignancy 3. Hemiplegia Dispo: anticipate home with Hospice following RT
[2018-04-01] MEDS ORDERED: Polyethylene Glycol 3350* 17 GM PACKET PO PRN (11:24)
--- NOTE | 2018-04-01 12:52 | PN ---
Progress Note - Progress Note Date of Service: 04/01/18 Note: MOLST form completed and on chart. Also clarified with family that [facility] will not cover AI as per Dr. Lewis. Family would like to try AI and see how it goes would recommend [facility] or [facility] being consulted on discharge.
--- NOTE | 2018-04-01 21:36 | PN ---
Subjective Date of Service: 04/01/18 Interval History: patient with no new complaints , reports back pain with movement. continues to have flaccid lower extremities. Denies chest pain or shortness of breath. Denies abd pain n/v/d. Family updates and all questions answered about care goals. At this time the patient and family wishes to pursue palliative measures. The patient would like to receive palliative radiation. She would like to go home with hospice when able- family currently making arrangements. Family History: Unchanged from Admission Social History: Unchanged from Admission Past Medical History: Unchanged from Admission Objective Active Medications: Acetaminophen (Tylenol Tab*) 650 mg PO Q6H PRN PRN Reason: FEVER/PAIN Anastrozole (Arimidex (Nf)) 1 mg PO DAILY [facility] Cyclobenzaprine HCl (Flexeril Tab*) 10 mg PO TID PRN PRN Reason: SPASMS Dexamethasone Sodium Phosphate (Decadron Iv*) 8 mg IV SLOW PU Q12HR [facility] Last Admin: 04/01/18 20:36 Dose: 8 mg Docusate Sodium (Colace Cap*) 100 mg PO BID [facility] Last Admin: 04/01/18 20:37 Dose: 100 mg Heparin Sodium (Porcine) (Heparin Vial(*)) 5,000 units SUBCUT Q8HR [facility] Last Admin: 04/01/18 20:36 Dose: 5,000 units Ceftriaxone Sodium 1 gm/ (Sodium Chloride) 50 mls @ 200 mls/hr IVPB 2300 [facility] Last Admin: 03/31/18 23:05 Dose: 200 mls/hr Ibuprofen (Motrin Tab*) 400 mg PO Q6H PRN PRN Reason: PAIN Last Admin: 04/01/18 06:21 Dose: 400 mg Levothyroxine Sodium (Synthroid Tab*) 25 mcg PO DAILY@0600 [facility] Last Admin: 04/01/18 06:03 Dose: 25 mcg Morphine Sulfate (Morphine Vial*) 1 mg IV Q4H PRN PRN Reason: SEVERE PAIN Last Admin: 03/29/18 23:52 Dose: 1 mg Ondansetron HCl (Zofran Inj*) 4 mg IV Q6H PRN PRN Reason: NAUSEA Oxycodone HCl (Roxycodone Tab*) 5 mg PO Q4H PRN PRN Reason: PAIN - MODERATE Last Admin: 03/30/18 00:42 Dose: 5 mg Polyethylene Glycol/Electrolytes (Miralax*) 17 gm PO DAILY PRN PRN Reason: CONSTIPATION Last Admin: 03/30/18 09:34 Dose: 17 gm Polyethylene Glycol/Electrolytes (Miralax*) 17 gm PO DAILY PRN PRN Reason: CONSTIPATION Last Admin: 04/01/18 16:02 Dose: 17 gm Senna (Senokot Tab*) 1 tab PO BEDTIME PRN PRN Reason: CONSTIPATION Vital Signs - 8 hr 04/01/18 16:30 Temperature 97.7 F Pulse Rate 75 Respiratory 16 Rate Blood Pressure 135/68 (mmHg) O2 Sat by Pulse 96 Oximetry Oxygen Devices in Use Now: None Appearance: alert , oriented x 3 , no acute distress Eyes: No Scleral Icterus Ears/Nose/Mouth/Throat: Clear Oropharnyx, Mucous Membranes Moist Neck: NL Appearance and Movements; NL JVP Respiratory: Symmetrical Chest Expansion and Respiratory Effort, Clear to Auscultation Cardiovascular: NL Sounds; No Murmurs; No JVD, No Edema Abdominal: NL Sounds; No Tenderness; No Distention Extremities: No Edema, No Clubbing, Cyanosis, - - bilat lower ext. left leg flaccid, right leg with very minimal movement , pedal pulses + 2 Skin: No Rash or Ulcers, No Nodules or Sclerosis Neurological: Alert and Oriented x 3 Nutrition: Taking PO's Result Diagrams: 03/30/18 06:35 03/30/18 06:35 Additional Lab and Data: Lab Results 03/29/18 03/29/18 03/29/18 Range/Units 17:08 17:08 17:08 WBC 5.7 (3.5-10.8) 10^3/ul RBC 4.78 (4.00-5.40) 10^6/ul Hgb 13.9 (12.0-16.0) g/dl Hct 42 (35-47) % MCV 87 (80-97) fL MCH 29 (27-31) pg MCHC 33 (31-36) g/dl RDW 14 (10.5-15) % Plt Count 320 (150-450) 10^3/ul MPV 7.9 (7.4-10.4) fL Neut % (Auto) 74.5 % Lymph % (Auto) 15.5 % [place] % (Auto) 8.9 % Eos % (Auto) 0.5 % Baso % (Auto) 0.6 % Absolute Neuts (auto) 4.3 (1.5-7.7) 10^3/ul Absolute Lymphs (auto) 0.9 L (1.0-4.8) 10^3/ul Absolute Monos (auto) 0.5 (0-0.8) 10^3/ul Absolute Eos (auto) 0 (0-0.6) 10^3/ul Absolute Basos (auto) 0 (0-0.2) 10^3/ul Absolute Nucleated RBC 0 10^3/ul Nucleated RBC % 0.1 Sodium 139 (135-145) mmol/L Potassium 3.6 (3.5-5.0) mmol/L Chloride 102 (101-111) mmol/L Carbon Dioxide 29 (22-32) mmol/L Anion Gap 8 (2-11) mmol/L BUN 23 (6-24) mg/dL Creatinine 0.76 (0.51-0.95) mg/dL Est GFR ( Amer) 86.9 (>60) Est GFR (Non-Af Amer) 71.8 (>60) BUN/Creatinine Ratio 30.3 H (8-20) Glucose 119 H (70-100) mg/dL Lactic Acid 1.7 (0.5-2.0) mmol/L Calcium 9.7 (8.6-10.3) mg/dL Total Bilirubin 0.90 (0.2-1.0) mg/dL AST 27 (13-39) U/L ALT 14 (7-52) U/L Alkaline Phosphatase 221 H (34-104) U/L Troponin I 0.02 (<0.04) ng/mL C-Reactive Protein 42.07 H (<8.01) mg/L B-Natriuretic Peptide (<=100) pg/mL Total Protein 7.0 (6.4-8.9) g/dL Albumin 4.0 (3.2-5.2) g/dL Globulin 3.0 (2-4) g/dL Albumin/Globulin Ratio 1.3 (1-3) TSH 16.84 H (0.34-5.60) mcIU/mL Thyroxine (T4) Pending Total T3 Pending Urine Color Urine Appearance Urine pH (5-9) Ur Specific [place] (1.010-1.030) Urine Protein (Negative) Urine Ketones (Negative) Urine Blood (Negative) Urine Nitrate (Negative) Urine Bilirubin (Negative) Urine Urobilinogen (Negative) Ur Leukocyte Esterase (Negative) Urine WBC (Auto) (Absent) Urine RBC (Auto) (Absent) Ur Squamous Epith Cells (Absent) Urine Bacteria (Absent) Urine Glucose (Negative) 03/29/18 03/29/18 03/29/18 Range/Units 17:52 19:53 20:24 WBC (3.5-10.8) 10^3/ul RBC (4.00-5.40) 10^6/ul Hgb (12.0-16.0) g/dl Hct (35-47) % MCV (80-97) fL MCH (27-31) pg MCHC (31-36) g/dl RDW (10.5-15) % Plt Count (150-450) 10^3/ul MPV (7.4-10.4) fL Neut % (Auto) % Lymph % (Auto) % [place] % (Auto) % Eos % (Auto) % Baso % (Auto) % Absolute Neuts (auto) (1.5-7.7) 10^3/ul Absolute Lymphs (auto) (1.0-4.8) 10^3/ul Absolute Monos (auto) (0-0.8) 10^3/ul Absolute Eos (auto) (0-0.6) 10^3/ul Absolute Basos (auto) (0-0.2) 10^3/ul Absolute Nucleated RBC 10^3/ul Nucleated RBC % Sodium (135-145) mmol/L Potassium (3.5-5.0) mmol/L Chloride (101-111) mmol/L Carbon Dioxide (22-32) mmol/L Anion Gap (2-11) mmol/L BUN (6-24) mg/dL Creatinine (0.51-0.95) mg/dL Est GFR ( Amer) (>60) Est GFR (Non-Af Amer) (>60) BUN/Creatinine Ratio (8-20) Glucose (70-100) mg/dL Lactic Acid (0.5-2.0) mmol/L Calcium (8.6-10.3) mg/dL Total Bilirubin (0.2-1.0) mg/dL AST (13-39) U/L ALT (7-52) U/L Alkaline Phosphatase (34-104) U/L Troponin I 0.01 (<0.04) ng/mL C-Reactive Protein (<8.01) mg/L B-Natriuretic Peptide 116 H (<=100) pg/mL Total Protein (6.4-8.9) g/dL Albumin (3.2-5.2) g/dL Globulin (2-4) g/dL Albumin/Globulin Ratio (1-3) TSH (0.34-5.60) mcIU/mL Thyroxine (T4) Total T3 Urine Color Yellow Urine Appearance Cloudy Urine pH 5.0 (5-9) Ur Specific [place] 1.015 (1.010-1.030) Urine Protein 1+(30 mg/dl) A (Negative) Urine Ketones Negative (Negative) Urine Blood 1+ A (Negative) Urine Nitrate Negative (Negative) Urine Bilirubin Negative (Negative) Urine Urobilinogen Negative (Negative) Ur Leukocyte Esterase 3+ A (Negative) Urine WBC (Auto) 3+(>20/hpf) A (Absent) Urine RBC (Auto) 1+(3-5/hpf) A (Absent) Ur Squamous Epith Cells Present A (Absent) Urine Bacteria 3+ A (Absent) Urine Glucose Negative (Negative) Microbiology and Other Data: Microbiology 03/29/18 19:53 Urine Culture - Preliminary Urine Escherichia Coli Assess/Plan/Problems-Billing Assessment: Ms. Wynn is an 87 y.o female with past medical hx of hypothyroid and cauda equina syndrome in 2003 , s/p laminectomy who presented to the emergency room with lower extremities that were flaccid and back pain. - Patient Problems (1) Metastatic breast cancer Current Visit: Yes Status: Acute Code(s): C50.919 - MALIGNANT NEOPLASM OF UNSP SITE OF UNSPECIFIED FEMALE BREAST SNOMED Code(s): 212936375 Comment: Dr. Servin consulted - Patient with multiple bone lesions and large left breast lesion - positive for ductal adenocarcinoma - Patient was seen in consultation by Dr. Zamora from radiation therapy about possible therapy for spine lesion - consulted palliative care - patient and family wish for hospice care and palliative measures at this time -family waiting for testing results to make decision on treatment at this point (2) Lower extremity dysfunction Current Visit: Yes Status: Acute Code(s): R29.898 - OTH SYMPTOMS AND SIGNS INVOLVING THE MUSCULOSKELETAL SYSTEM SNOMED Code(s): 118644857 Comment: - suspect this is related to metastatic disease - neurosurgery consulted - no surgery - pall. care (3) UTI (urinary tract infection) Current Visit: Yes Status: Acute Comment: Urine culture with e coli - will continue ceftriaxone (4) Hypothyroid Current Visit: Yes Status: Acute Code(s): E03.9 - HYPOTHYROIDISM, UNSPECIFIED SNOMED Code(s): 95388958 Comment: tsh 16 - synthroid started at 25 mcg (5) DVT prophylaxis Current Visit: Yes Status: Acute Code(s): NNE4798 - SNOMED Code(s): 622960441 Comment: heparin subq (6) DNR (do not resuscitate) Current Visit: Yes Status: Acute Status and Disposition: home with hospice when able
[2018-04-01] MEDS: cefTRIAXone(*) 1 GM in NS 0.9% 50 ML* 50 ML IVPB SCH (22:51)
--- NOTE | 2018-04-01 23:58 | RADMED ---
RADIATION ONCOLOGY INPATIENT CONSULTATION NOTE: DATE OF CONSULT: 03/31/18 - ROOM #411 DIAGNOSES: Metastatic breast cancer, AJCC stage IV. ECOG performance status 3. HISTORY OF PRESENT ILLNESS: Francheska Wynn is an 87-year-old woman with failure to thrive, decline, and paraplegia developing over the past month. She presented for medical evaluation and radiographic evaluation. Identified destructive bony lesions concerning for metastatic cancer with notable lesion in the T6 vertebral body, with MRI confirming spinal cord compression. A left- sided breast mass was discovered and biopsy performed 03/30/18 identifies ductal adenocarcinoma, ER positive, ID negative, HER-2 pending. She has significant back pain, is referred for discussion of palliative radiation therapy. PAST MEDICAL HISTORY: 1. Cauda equina syndrome status post surgery in the past. 2. Hypothyroidism. MEDICATIONS: As per the inpatient record, includes dexamethasone. ALLERGIES: CRANBERRIES. FAMILY HISTORY: No history of malignancy reported in her first degree relatives. SOCIAL HISTORY: She is accompanied by her son and grandson, who provide significant amounts of history, and are quite supportive. REVIEW OF SYSTEMS: As in the history of present illness, otherwise, complete review of systems is obtained from the patient, negative for additional significant findings. PHYSICAL EXAM: Vital Signs: Temperature 97.7, pulse rate 73, respiratory rate 18, oxygen saturation 97% on room air, blood pressure 129/67. General: She is awake, she is alert and oriented, in no acute distress. Normocephalic, atraumatic. Sclerae are anicteric. Neck is supple. Full range of motion. Midline trachea. No masses palpable on the neck or thyroid. Lungs clear to auscultation bilaterally. Cardiovascular: S1, S2 regular. Abdomen: Soft, nontender. No mass, no organomegaly. Neurologic: Cranial nerves II through XII were intact. Strength is intact in the upper extremities. Essentially plegic in the bilateral lower extremities with minimal flexion and extension of the toes and foot on the left. Sensory is somewhat intact to light touch. DIAGNOSTIC STUDIES/LAB DATA: Pathology and Radiology: Reviewed, as in the history of present illness. ASSESSMENT AND PLAN: Francheska Wynn is an 87-year-old woman with newly discovered metastatic breast cancer and paraplegia with back pain related to extensive destructive lesion in the T6 vertebral body and spinal cord compression from epidural extension of tumor. I did review her history as well as pathologic and radiographic findings, I discussed at some length with the patient and her family, as they are already well informed and familiar. She participates in discussion appropriately, asks appropriate questions. We reviewed the natural history of breast cancer, and considerations for management, with the majority of our discussion focused on her situation, and the potential role for palliative radiation therapy, both potentially for pain relief, and also for neurologic dysfunction from spinal cord compression. She has been paraplegic by report for greater than a month, in the likelihood of substantial improvement to allow her to become ambulatory and functional is limited. Palliative radiation therapy could certainly provide a reasonable likelihood of pain improvement, although the process for receiving palliative radiation therapy can be a challenge. With regard to radiation therapy for her situation, explained the logistics and rationale for treatment, risks, benefits, and alternatives as well as the acute and long-term frequent and uncommon toxicities, and answered the patient's questions to the best of my ability. I did offer CT simulation today and potentially to initiate treatment to try to address her spinal cord compression and pain. She is not inclined to proceed at this time, and seems to be a well-informed decision maker. I offered single fraction palliation as well as fractionated palliative regimens that might provide some more durable pain control or a more brisk response. With hormone receptor positive metastatic breast cancer in the bone, she may be recommended for hormone therapy, with a realistic expectation of significant disease control and some less expectancy and longevity. Hospice is appropriate, and palliative care only is a reasonable option which we also discussed. I did leave my contact information, in case after additional discussion she is inclined to proceed with palliative radiation therapy. Thank you for giving me the opportunity to participate in the care of this very pleasant patient. ADDENDUM: On 04/01/18, after additional consideration, the patient is interested to consider palliative radiation therapy, and I reviewed with her the logistics and rationale and options in terms of treatment. She did sign informed consent and would like to proceed with single fraction palliation to try to improve pain control and treat spinal cord compression. She will undergo CT simulation today to facilitate treatment planning. For her situation , I recommend 800 cGy in a single fraction, tentative treatment plan to be delivered on 04/04/18. [id number]/[facility] #: [id number] [facility]
[2018-04-02] MEDS: Levothyroxine TAB* 25 MCG TAB PO SCH (04:56)
[2018-04-02] MEDS: Heparin VIAL(*) 5000 UNITS/ML VIAL (FIVE THOUSAND) SUBCUT SCH ×3 (04:56→21:31)
--- NOTE | 2018-04-02 09:25 | PN ---
Progress Note - Progress Note Date of Service: 04/02/18 SOAP: Subjective: feels very good. as long as she does not move she does not have pain Objective: Vital Signs Temp Pulse Resp BP Pulse Ox 97.1 F 55 16 115/62 84 04/02/18 03:19 04/02/18 03:19 04/02/18 03:19 04/02/18 03:19 04/02/18 03:19 lying flat in nad perr eomi cta anteriorly s1 s2 nl soft nt +Bs trace le edema 0/5 strength bilateral LE Acetaminophen (Tylenol Tab*) 650 mg PO Q6H PRN PRN Reason: FEVER/PAIN Anastrozole (Arimidex (Nf)) 1 mg PO DAILY [facility] Cyclobenzaprine HCl (Flexeril Tab*) 10 mg PO TID PRN PRN Reason: SPASMS Dexamethasone Sodium Phosphate (Decadron Iv*) 8 mg IV SLOW PU Q12HR [facility] Last Admin: 04/01/18 20:36 Dose: 8 mg Docusate Sodium (Colace Cap*) 100 mg PO BID [facility] Last Admin: 04/01/18 20:37 Dose: 100 mg Heparin Sodium (Porcine) (Heparin Vial(*)) 5,000 units SUBCUT Q8HR [facility] Last Admin: 04/02/18 04:56 Dose: 5,000 units Ceftriaxone Sodium 1 gm/ (Sodium Chloride) 50 mls @ 200 mls/hr IVPB 2300 [facility] Last Admin: 04/01/18 22:51 Dose: 200 mls/hr Ibuprofen (Motrin Tab*) 400 mg PO Q6H PRN PRN Reason: PAIN Last Admin: 04/01/18 06:21 Dose: 400 mg Levothyroxine Sodium (Synthroid Tab*) 25 mcg PO DAILY@0600 [facility] Last Admin: 04/02/18 04:56 Dose: 25 mcg Morphine Sulfate (Morphine Vial*) 1 mg IV Q4H PRN PRN Reason: SEVERE PAIN Last Admin: 03/29/18 23:52 Dose: 1 mg Ondansetron HCl (Zofran Inj*) 4 mg IV Q6H PRN PRN Reason: NAUSEA Oxycodone HCl (Roxycodone Tab*) 5 mg PO Q4H PRN PRN Reason: PAIN - MODERATE Last Admin: 03/30/18 00:42 Dose: 5 mg Polyethylene Glycol/Electrolytes (Miralax*) 17 gm PO DAILY PRN PRN Reason: CONSTIPATION Last Admin: 03/30/18 09:34 Dose: 17 gm Polyethylene Glycol/Electrolytes (Miralax*) 17 gm PO DAILY PRN PRN Reason: CONSTIPATION Last Admin: 04/01/18 16:02 Dose: 17 gm Senna (Senokot Tab*) 1 tab PO BEDTIME PRN PRN Reason: CONSTIPATION Assessment: 87 yo female with new diagnosis of metastatic breast cancer who presented with back pain and paraplegia. She is now in agreement with palliative RT, which is unlikely to affect functional outcome but will hopefully palliate her pain. She will start her AI today, which unfortunately will make her ineligible for hospice for now. Plan: . Metastatic breast cancer - bony disease with T6 lesion causing cord compression and associated hemiplegia -arimidex 1 mg po daily -cont dex for cord lesion -RT next week Dispo: anticipate home with fu with med onc next week
[2018-04-02] MEDS: Dexamethasone IV* 4 MG/ML 1 ML (4 MG) IV SLOW PU SCH ×2 (09:56→21:31)
[2018-04-02] MEDS: CMCS: Anastrozole (NF) 1 MG TAB PO SCH (09:57)
[2018-04-02] MEDS: Docusate CAP* 100 MG PO SCH ×2 (09:59→21:31)
[2018-04-02] MEDS: Ibuprofen TAB* 400 MG PO PRN (17:41)
--- NOTE | 2018-04-02 19:47 | PN ---
Subjective Date of Service: 04/02/18 Interval History: Denies any complaints.Unable to move bilateral LE Family History: Unchanged from Admission Social History: Unchanged from Admission Past Medical History: Unchanged from Admission Objective Active Medications: Acetaminophen (Tylenol Tab*) 650 mg PO Q6H PRN PRN Reason: FEVER/PAIN Anastrozole (Arimidex (Nf)) 1 mg PO DAILY [facility] Last Admin: 04/02/18 09:57 Dose: 1 mg Cyclobenzaprine HCl (Flexeril Tab*) 10 mg PO TID PRN PRN Reason: SPASMS Dexamethasone Sodium Phosphate (Decadron Iv*) 8 mg IV SLOW PU Q12HR [facility] Last Admin: 04/02/18 09:56 Dose: 8 mg Docusate Sodium (Colace Cap*) 100 mg PO BID [facility] Last Admin: 04/02/18 09:59 Dose: 100 mg Heparin Sodium (Porcine) (Heparin Vial(*)) 5,000 units SUBCUT Q8HR [facility] Last Admin: 04/02/18 14:03 Dose: 5,000 units Ceftriaxone Sodium 1 gm/ (Sodium Chloride) 50 mls @ 200 mls/hr IVPB 2300 [facility] Last Admin: 04/01/18 22:51 Dose: 200 mls/hr Ibuprofen (Motrin Tab*) 400 mg PO Q6H PRN PRN Reason: PAIN Last Admin: 04/02/18 17:41 Dose: 400 mg Levothyroxine Sodium (Synthroid Tab*) 25 mcg PO DAILY@0600 [facility] Last Admin: 04/02/18 04:56 Dose: 25 mcg Morphine Sulfate (Morphine Vial*) 1 mg IV Q4H PRN PRN Reason: SEVERE PAIN Last Admin: 03/29/18 23:52 Dose: 1 mg Ondansetron HCl (Zofran Inj*) 4 mg IV Q6H PRN PRN Reason: NAUSEA Oxycodone HCl (Roxycodone Tab*) 5 mg PO Q4H PRN PRN Reason: PAIN - MODERATE Last Admin: 03/30/18 00:42 Dose: 5 mg Polyethylene Glycol/Electrolytes (Miralax*) 17 gm PO DAILY PRN PRN Reason: CONSTIPATION Last Admin: 03/30/18 09:34 Dose: 17 gm Polyethylene Glycol/Electrolytes (Miralax*) 17 gm PO DAILY PRN PRN Reason: CONSTIPATION Last Admin: 04/01/18 16:02 Dose: 17 gm Senna (Senokot Tab*) 1 tab PO BEDTIME PRN PRN Reason: CONSTIPATION Vital Signs - 8 hr 04/02/18 04/02/18 16:05 18:45 Temperature 98.2 F 97.6 F Pulse Rate 77 75 Respiratory 18 18 Rate Blood Pressure 161/69 152/79 (mmHg) O2 Sat by Pulse 96 96 Oximetry Oxygen Devices in Use Now: None Eyes: No Scleral Icterus Ears/Nose/Mouth/Throat: NL Teeth, Lips, Gums Neck: NL Appearance and Movements; NL JVP Respiratory: Symmetrical Chest Expansion and Respiratory Effort Cardiovascular: NL Sounds; No Murmurs; No JVD, RRR Abdominal: NL Sounds; No Tenderness; No Distention Extremities: No Edema, - - Sensation intact bilaterally.Unable to move bilateral LE.Poor strength Skin: No Rash or Ulcers Result Diagrams: 03/30/18 06:35 03/30/18 06:35 Additional Lab and Data: Lab Results 03/29/18 03/29/18 03/29/18 Range/Units 17:08 17:08 17:08 WBC 5.7 (3.5-10.8) 10^3/ul RBC 4.78 (4.00-5.40) 10^6/ul Hgb 13.9 (12.0-16.0) g/dl Hct 42 (35-47) % MCV 87 (80-97) fL MCH 29 (27-31) pg MCHC 33 (31-36) g/dl RDW 14 (10.5-15) % Plt Count 320 (150-450) 10^3/ul MPV 7.9 (7.4-10.4) fL Neut % (Auto) 74.5 % Lymph % (Auto) 15.5 % [place] % (Auto) 8.9 % Eos % (Auto) 0.5 % Baso % (Auto) 0.6 % Absolute Neuts (auto) 4.3 (1.5-7.7) 10^3/ul Absolute Lymphs (auto) 0.9 L (1.0-4.8) 10^3/ul Absolute Monos (auto) 0.5 (0-0.8) 10^3/ul Absolute Eos (auto) 0 (0-0.6) 10^3/ul Absolute Basos (auto) 0 (0-0.2) 10^3/ul Absolute Nucleated RBC 0 10^3/ul Nucleated RBC % 0.1 Sodium 139 (135-145) mmol/L Potassium 3.6 (3.5-5.0) mmol/L Chloride 102 (101-111) mmol/L Carbon Dioxide 29 (22-32) mmol/L Anion Gap 8 (2-11) mmol/L BUN 23 (6-24) mg/dL Creatinine 0.76 (0.51-0.95) mg/dL Est GFR ( Amer) 86.9 (>60) Est GFR (Non-Af Amer) 71.8 (>60) BUN/Creatinine Ratio 30.3 H (8-20) Glucose 119 H (70-100) mg/dL Lactic Acid 1.7 (0.5-2.0) mmol/L Calcium 9.7 (8.6-10.3) mg/dL Total Bilirubin 0.90 (0.2-1.0) mg/dL AST 27 (13-39) U/L ALT 14 (7-52) U/L Alkaline Phosphatase 221 H (34-104) U/L Troponin I 0.02 (<0.04) ng/mL C-Reactive Protein 42.07 H (<8.01) mg/L B-Natriuretic Peptide (<=100) pg/mL Total Protein 7.0 (6.4-8.9) g/dL Albumin 4.0 (3.2-5.2) g/dL Globulin 3.0 (2-4) g/dL Albumin/Globulin Ratio 1.3 (1-3) TSH 16.84 H (0.34-5.60) mcIU/mL Thyroxine (T4) Pending Total T3 Pending Urine Color Urine Appearance Urine pH (5-9) Ur Specific [place] (1.010-1.030) Urine Protein (Negative) Urine Ketones (Negative) Urine Blood (Negative) Urine Nitrate (Negative) Urine Bilirubin (Negative) Urine Urobilinogen (Negative) Ur Leukocyte Esterase (Negative) Urine WBC (Auto) (Absent) Urine RBC (Auto) (Absent) Ur Squamous Epith Cells (Absent) Urine Bacteria (Absent) Urine Glucose (Negative) 03/29/18 03/29/18 03/29/18 Range/Units 17:52 19:53 20:24 WBC (3.5-10.8) 10^3/ul RBC (4.00-5.40) 10^6/ul Hgb (12.0-16.0) g/dl Hct (35-47) % MCV (80-97) fL MCH (27-31) pg MCHC (31-36) g/dl RDW (10.5-15) % Plt Count (150-450) 10^3/ul MPV (7.4-10.4) fL Neut % (Auto) % Lymph % (Auto) % [place] % (Auto) % Eos % (Auto) % Baso % (Auto) % Absolute Neuts (auto) (1.5-7.7) 10^3/ul Absolute Lymphs (auto) (1.0-4.8) 10^3/ul Absolute Monos (auto) (0-0.8) 10^3/ul Absolute Eos (auto) (0-0.6) 10^3/ul Absolute Basos (auto) (0-0.2) 10^3/ul Absolute Nucleated RBC 10^3/ul Nucleated RBC % Sodium (135-145) mmol/L Potassium (3.5-5.0) mmol/L Chloride (101-111) mmol/L Carbon Dioxide (22-32) mmol/L Anion Gap (2-11) mmol/L BUN (6-24) mg/dL Creatinine (0.51-0.95) mg/dL Est GFR ( Amer) (>60) Est GFR (Non-Af Amer) (>60) BUN/Creatinine Ratio (8-20) Glucose (70-100) mg/dL Lactic Acid (0.5-2.0) mmol/L Calcium (8.6-10.3) mg/dL Total Bilirubin (0.2-1.0) mg/dL AST (13-39) U/L ALT (7-52) U/L Alkaline Phosphatase (34-104) U/L Troponin I 0.01 (<0.04) ng/mL C-Reactive Protein (<8.01) mg/L B-Natriuretic Peptide 116 H (<=100) pg/mL Total Protein (6.4-8.9) g/dL Albumin (3.2-5.2) g/dL Globulin (2-4) g/dL Albumin/Globulin Ratio (1-3) TSH (0.34-5.60) mcIU/mL Thyroxine (T4) Total T3 Urine Color Yellow Urine Appearance Cloudy Urine pH 5.0 (5-9) Ur Specific [place] 1.015 (1.010-1.030) Urine Protein 1+(30 mg/dl) A (Negative) Urine Ketones Negative (Negative) Urine Blood 1+ A (Negative) Urine Nitrate Negative (Negative) Urine Bilirubin Negative (Negative) Urine Urobilinogen Negative (Negative) Ur Leukocyte Esterase 3+ A (Negative) Urine WBC (Auto) 3+(>20/hpf) A (Absent) Urine RBC (Auto) 1+(3-5/hpf) A (Absent) Ur Squamous Epith Cells Present A (Absent) Urine Bacteria 3+ A (Absent) Urine Glucose Negative (Negative) Microbiology and Other Data: Microbiology 03/29/18 19:53 Urine Culture - Preliminary Urine Escherichia Coli Assess/Plan/Problems-Billing Assessment: Ms. Wynn is an 87 y.o female with past medical hx of hypothyroid and cauda equina syndrome in 2003 , s/p laminectomy who presented to the emergency room with lower extremities that were flaccid and back pain. - Patient Problems (1) Cord compression Current Visit: Yes Status: Acute Code(s): G95.20 - UNSPECIFIED CORD COMPRESSION SNOMED Code(s): 22328630 Comment: Metastatic breast cancer t6 lesion and cord compression with hemiplegia RT palliative Continue Dexamethasone Seen by neurosurgery and followed by oncology Continue Armidex (2) DNR (do not resuscitate) Current Visit: Yes Status: Acute (3) Hypothyroid Current Visit: Yes Status: Acute Code(s): E03.9 - HYPOTHYROIDISM, UNSPECIFIED SNOMED Code(s): 59299569 Comment: tsh 16 - synthroid started at 25 mcg (4) Metastatic breast cancer Current Visit: Yes Status: Acute Code(s): C50.919 - MALIGNANT NEOPLASM OF UNSP SITE OF UNSPECIFIED FEMALE BREAST SNOMED Code(s): 027496223 Comment: Continue Armidex and palliative RT Followed by oncology (5) UTI (urinary tract infection) Current Visit: Yes Status: Acute Comment: Urine culture with e coli - will continue ceftriaxone
[2018-04-02] MEDS: Polyethylene Glycol 3350* 17 GM PACKET PO PRN (21:32)
[2018-04-02] MEDS: cefTRIAXone(*) 1 GM in NS 0.9% 50 ML* 50 ML IVPB SCH (22:35)
[2018-04-03] MEDS: Levothyroxine TAB* 25 MCG TAB PO SCH (05:46)
[2018-04-03] MEDS: Heparin VIAL(*) 5000 UNITS/ML VIAL (FIVE THOUSAND) SUBCUT SCH ×3 (05:46→21:40)
[2018-04-03 07:05] LABS: Hematocrit 36 % (35-47); Mean Corpuscular HGB Conc 34 g/dl (31-36); Mean Corpuscular Hemoglobin 29 pg (27-31); Mean Corpuscular Volume 86 fL (80-97); Mean Platelet Volume 8.5 fL (7.4-10.4); Platelet Count 298 10^3/ul (150-450); Red Blood Count 4.18 10^6/ul (4.00-5.40); Red Cell Distribution Width 14 % (10.5-15); White Blood Count 6.6 10^3/ul (3.5-10.8)
[2018-04-03 07:26] LABS: BUN/Creatinine Ratio 44.2 (8-20); Calcium 8.8 mg/dL (8.6-10.3); EGFR African American 134.7 (>60); EGFR Non-African American 111.3 (>60); Potassium 4.2 mmol/L (3.5-5.0)
[2018-04-03 07:47] LABS: ABS Basophils 0 10^3/ul (0-0.2); ABS Eosinophils 0 10^3/ul (0-0.6); ABS Lymphocytes 1.1 10^3/ul (1.0-4.8); ABS Monocytes 0.4 10^3/ul (0-0.8); ABS Neutrophils 5.1 10^3/ul (1.5-7.7); ABS Nucleated RBC 0 10^3/ul; Eosinophil % 0 %; Lymphocyte % 16.4 %; Nucleated Red Blood Cells % 0
[2018-04-03] MEDS: Docusate CAP* 100 MG PO SCH ×2 (09:47→21:39)
[2018-04-03] MEDS: CMCS: Anastrozole (NF) 1 MG TAB PO SCH (09:47)
[2018-04-03] MEDS: Dexamethasone IV* 4 MG/ML 1 ML (4 MG) IV SLOW PU SCH ×2 (10:10→21:40)
[2018-04-03] MEDS ORDERED: Bisacodyl SUPP* 10 MG SUPP PR PRN (10:39)
--- NOTE | 2018-04-03 12:08 | PN ---
Subjective Date of Service: 04/03/18 Interval History: Reports constipation.No BM for 4 days with bowel meds.Wishes to try a suppository today.Denies any other complaints at this time.Unable to move her legs Family History: Unchanged from Admission Social History: Unchanged from Admission Past Medical History: Unchanged from Admission Objective Active Medications: Acetaminophen (Tylenol Tab*) 650 mg PO Q6H PRN PRN Reason: FEVER/PAIN Anastrozole (Arimidex (Nf)) 1 mg PO DAILY [facility] Last Admin: 04/03/18 09:47 Dose: 1 mg Bisacodyl (Dulcolax Supp*) 10 mg AR DAILY PRN PRN Reason: CONSTIPATION Last Admin: 04/03/18 11:24 Dose: 10 mg Cyclobenzaprine HCl (Flexeril Tab*) 10 mg PO TID PRN PRN Reason: SPASMS Dexamethasone Sodium Phosphate (Decadron Iv*) 8 mg IV SLOW PU Q12HR [facility] Last Admin: 04/03/18 10:10 Dose: 8 mg Docusate Sodium (Colace Cap*) 100 mg PO BID [facility] Last Admin: 04/03/18 09:47 Dose: 100 mg Heparin Sodium (Porcine) (Heparin Vial(*)) 5,000 units SUBCUT Q8HR [facility] Last Admin: 04/03/18 05:46 Dose: 5,000 units Ceftriaxone Sodium 1 gm/ (Sodium Chloride) 50 mls @ 200 mls/hr IVPB 2300 [facility] Last Admin: 04/02/18 22:35 Dose: 200 mls/hr Ibuprofen (Motrin Tab*) 400 mg PO Q6H PRN PRN Reason: PAIN Last Admin: 04/02/18 17:41 Dose: 400 mg Levothyroxine Sodium (Synthroid Tab*) 25 mcg PO DAILY@0600 [facility] Last Admin: 04/03/18 05:46 Dose: 25 mcg Morphine Sulfate (Morphine Vial*) 1 mg IV Q4H PRN PRN Reason: SEVERE PAIN Last Admin: 03/29/18 23:52 Dose: 1 mg Ondansetron HCl (Zofran Inj*) 4 mg IV Q6H PRN PRN Reason: NAUSEA Oxycodone HCl (Roxycodone Tab*) 5 mg PO Q4H PRN PRN Reason: PAIN - MODERATE Last Admin: 03/30/18 00:42 Dose: 5 mg Polyethylene Glycol/Electrolytes (Miralax*) 17 gm PO DAILY PRN PRN Reason: CONSTIPATION Last Admin: 04/02/18 21:32 Dose: 17 gm Polyethylene Glycol/Electrolytes (Miralax*) 17 gm PO DAILY PRN PRN Reason: CONSTIPATION Last Admin: 04/01/18 16:02 Dose: 17 gm Senna (Senokot Tab*) 1 tab PO BEDTIME PRN PRN Reason: CONSTIPATION Last Admin: 04/02/18 21:31 Dose: 1 tab Vital Signs - 8 hr 04/03/18 04/03/18 07:34 08:00 Temperature 97.6 F Pulse Rate 64 Respiratory 18 18 Rate Blood Pressure 134/81 (mmHg) O2 Sat by Pulse 95 Oximetry Oxygen Devices in Use Now: None Eyes: No Scleral Icterus Neck: NL Appearance and Movements; NL JVP Respiratory: Symmetrical Chest Expansion and Respiratory Effort, Clear to Auscultation Cardiovascular: NL Sounds; No Murmurs; No JVD Abdominal: NL Sounds; No Tenderness; No Distention Extremities: - - Edema 1+ bilaterally.Unable to move bilaterally LE.Sensation intact Skin: No Rash or Ulcers Neurological: Alert and Oriented x 3, - - Weakness and inability to move bilateral LE Result Diagrams: 04/03/18 06:22 04/03/18 06:22 Additional Lab and Data: Lab Results 03/29/18 03/29/18 03/29/18 Range/Units 17:08 17:08 17:08 WBC 5.7 (3.5-10.8) 10^3/ul RBC 4.78 (4.00-5.40) 10^6/ul Hgb 13.9 (12.0-16.0) g/dl Hct 42 (35-47) % MCV 87 (80-97) fL MCH 29 (27-31) pg MCHC 33 (31-36) g/dl RDW 14 (10.5-15) % Plt Count 320 (150-450) 10^3/ul MPV 7.9 (7.4-10.4) fL Neut % (Auto) 74.5 % Lymph % (Auto) 15.5 % [place] % (Auto) 8.9 % Eos % (Auto) 0.5 % Baso % (Auto) 0.6 % Absolute Neuts (auto) 4.3 (1.5-7.7) 10^3/ul Absolute Lymphs (auto) 0.9 L (1.0-4.8) 10^3/ul Absolute Monos (auto) 0.5 (0-0.8) 10^3/ul Absolute Eos (auto) 0 (0-0.6) 10^3/ul Absolute Basos (auto) 0 (0-0.2) 10^3/ul Absolute Nucleated RBC 0 10^3/ul Nucleated RBC % 0.1 Sodium 139 (135-145) mmol/L Potassium 3.6 (3.5-5.0) mmol/L Chloride 102 (101-111) mmol/L Carbon Dioxide 29 (22-32) mmol/L Anion Gap 8 (2-11) mmol/L BUN 23 (6-24) mg/dL Creatinine 0.76 (0.51-0.95) mg/dL Est GFR ( Amer) 86.9 (>60) Est GFR (Non-Af Amer) 71.8 (>60) BUN/Creatinine Ratio 30.3 H (8-20) Glucose 119 H (70-100) mg/dL Lactic Acid 1.7 (0.5-2.0) mmol/L Calcium 9.7 (8.6-10.3) mg/dL Total Bilirubin 0.90 (0.2-1.0) mg/dL AST 27 (13-39) U/L ALT 14 (7-52) U/L Alkaline Phosphatase 221 H (34-104) U/L Troponin I 0.02 (<0.04) ng/mL C-Reactive Protein 42.07 H (<8.01) mg/L B-Natriuretic Peptide (<=100) pg/mL Total Protein 7.0 (6.4-8.9) g/dL Albumin 4.0 (3.2-5.2) g/dL Globulin 3.0 (2-4) g/dL Albumin/Globulin Ratio 1.3 (1-3) TSH 16.84 H (0.34-5.60) mcIU/mL Thyroxine (T4) Pending Total T3 Pending Urine Color Urine Appearance Urine pH (5-9) Ur Specific [place] (1.010-1.030) Urine Protein (Negative) Urine Ketones (Negative) Urine Blood (Negative) Urine Nitrate (Negative) Urine Bilirubin (Negative) Urine Urobilinogen (Negative) Ur Leukocyte Esterase (Negative) Urine WBC (Auto) (Absent) Urine RBC (Auto) (Absent) Ur Squamous Epith Cells (Absent) Urine Bacteria (Absent) Urine Glucose (Negative) 03/29/18 03/29/18 03/29/18 Range/Units 17:52 19:53 20:24 WBC (3.5-10.8) 10^3/ul RBC (4.00-5.40) 10^6/ul Hgb (12.0-16.0) g/dl Hct (35-47) % MCV (80-97) fL MCH (27-31) pg MCHC (31-36) g/dl RDW (10.5-15) % Plt Count (150-450) 10^3/ul MPV (7.4-10.4) fL Neut % (Auto) % Lymph % (Auto) % [place] % (Auto) % Eos % (Auto) % Baso % (Auto) % Absolute Neuts (auto) (1.5-7.7) 10^3/ul Absolute Lymphs (auto) (1.0-4.8) 10^3/ul Absolute Monos (auto) (0-0.8) 10^3/ul Absolute Eos (auto) (0-0.6) 10^3/ul Absolute Basos (auto) (0-0.2) 10^3/ul Absolute Nucleated RBC 10^3/ul Nucleated RBC % Sodium (135-145) mmol/L Potassium (3.5-5.0) mmol/L Chloride (101-111) mmol/L Carbon Dioxide (22-32) mmol/L Anion Gap (2-11) mmol/L BUN (6-24) mg/dL Creatinine (0.51-0.95) mg/dL Est GFR ( Amer) (>60) Est GFR (Non-Af Amer) (>60) BUN/Creatinine Ratio (8-20) Glucose (70-100) mg/dL Lactic Acid (0.5-2.0) mmol/L Calcium (8.6-10.3) mg/dL Total Bilirubin (0.2-1.0) mg/dL AST (13-39) U/L ALT (7-52) U/L Alkaline Phosphatase (34-104) U/L Troponin I 0.01 (<0.04) ng/mL C-Reactive Protein (<8.01) mg/L B-Natriuretic Peptide 116 H (<=100) pg/mL Total Protein (6.4-8.9) g/dL Albumin (3.2-5.2) g/dL Globulin (2-4) g/dL Albumin/Globulin Ratio (1-3) TSH (0.34-5.60) mcIU/mL Thyroxine (T4) Total T3 Urine Color Yellow Urine Appearance Cloudy Urine pH 5.0 (5-9) Ur Specific [place] 1.015 (1.010-1.030) Urine Protein 1+(30 mg/dl) A (Negative) Urine Ketones Negative (Negative) Urine Blood 1+ A (Negative) Urine Nitrate Negative (Negative) Urine Bilirubin Negative (Negative) Urine Urobilinogen Negative (Negative) Ur Leukocyte Esterase 3+ A (Negative) Urine WBC (Auto) 3+(>20/hpf) A (Absent) Urine RBC (Auto) 1+(3-5/hpf) A (Absent) Ur Squamous Epith Cells Present A (Absent) Urine Bacteria 3+ A (Absent) Urine Glucose Negative (Negative) Microbiology and Other Data: Microbiology 03/29/18 19:53 Urine Culture - Preliminary Urine Escherichia Coli Assess/Plan/Problems-Billing Assessment: Ms. Wynn is an 87 y.o female with past medical hx of hypothyroid and cauda equina syndrome in 2003 , s/p laminectomy who presented to the emergency room with lower extremities that were flaccid and back pain. - Patient Problems (1) Cord compression Current Visit: Yes Status: Acute Code(s): G95.20 - UNSPECIFIED CORD COMPRESSION SNOMED Code(s): 30027339 Comment: Metastatic breast cancer t6 lesion and cord compression with hemiplegia RT palliative Continue Dexamethasone Seen by neurosurgery and followed by oncology Continue Armidex (2) Metastatic breast cancer Current Visit: Yes Status: Acute Code(s): C50.919 - MALIGNANT NEOPLASM OF UNSP SITE OF UNSPECIFIED FEMALE BREAST SNOMED Code(s): 945970465 Comment: Continue Armidex and palliative RT Followed by oncology (3) Hypothyroid Current Visit: Yes Status: Acute Code(s): E03.9 - HYPOTHYROIDISM, UNSPECIFIED SNOMED Code(s): 73008660 Comment: tsh 16 - synthroid started at 25 mcg (4) UTI (urinary tract infection) Current Visit: Yes Status: Acute Comment: Urine culture with e coli - will continue ceftriaxone (5) DNR (do not resuscitate) Current Visit: Yes Status: Acute (6) Constipation Current Visit: Yes Status: Acute Code(s): K59.00 - CONSTIPATION, UNSPECIFIED SNOMED Code(s): 12094397 Comment: bowel regimen
[2018-04-03] MEDS: Polyethylene Glycol 3350* 17 GM PACKET PO PRN (14:02)
[2018-04-03] MEDS: cefTRIAXone(*) 1 GM in NS 0.9% 50 ML* 50 ML IVPB SCH (21:39)
[2018-04-04] MEDS: Levothyroxine TAB* 25 MCG TAB PO SCH (05:27)
[2018-04-04] MEDS: Heparin VIAL(*) 5000 UNITS/ML VIAL (FIVE THOUSAND) SUBCUT SCH ×3 (05:29→20:53)
--- NOTE | 2018-04-04 10:35 | PN ---
Progress Note - Progress Note Date of Service: 04/04/18 SOAP: Subjective: []Feeling very well today. Tells me that she is comfortable laying flat and only has pain with moving/rolling/etc. Notes she has been a little constipated. Several questions about plan for RT. Medications: Acetaminophen (Tylenol Tab*) 650 mg PO Q6H PRN PRN Reason: FEVER/PAIN Anastrozole (Arimidex (Nf)) 1 mg PO DAILY [facility] Last Admin: 04/03/18 09:47 Dose: 1 mg Bisacodyl (Dulcolax Supp*) 10 mg DE DAILY PRN PRN Reason: CONSTIPATION Last Admin: 04/03/18 11:24 Dose: 10 mg Cyclobenzaprine HCl (Flexeril Tab*) 10 mg PO TID PRN PRN Reason: SPASMS Dexamethasone Sodium Phosphate (Decadron Iv*) 8 mg IV SLOW PU Q12HR [facility] Last Admin: 04/03/18 21:40 Dose: 8 mg Docusate Sodium (Colace Cap*) 100 mg PO BID [facility] Last Admin: 04/03/18 21:39 Dose: 100 mg Heparin Sodium (Porcine) (Heparin Vial(*)) 5,000 units SUBCUT Q8HR [facility] Last Admin: 04/04/18 05:29 Dose: 5,000 units Ceftriaxone Sodium 1 gm/ (Sodium Chloride) 50 mls @ 200 mls/hr IVPB 2300 [facility] Last Admin: 04/03/18 21:39 Dose: 200 mls/hr Ibuprofen (Motrin Tab*) 400 mg PO Q6H PRN PRN Reason: PAIN Last Admin: 04/02/18 17:41 Dose: 400 mg Levothyroxine Sodium (Synthroid Tab*) 25 mcg PO DAILY@0600 [facility] Last Admin: 04/04/18 05:27 Dose: 25 mcg Morphine Sulfate (Morphine Vial*) 1 mg IV Q4H PRN PRN Reason: SEVERE PAIN Last Admin: 03/29/18 23:52 Dose: 1 mg Ondansetron HCl (Zofran Inj*) 4 mg IV Q6H PRN PRN Reason: NAUSEA Oxycodone HCl (Roxycodone Tab*) 5 mg PO Q4H PRN PRN Reason: PAIN - MODERATE Last Admin: 03/30/18 00:42 Dose: 5 mg Polyethylene Glycol/Electrolytes (Miralax*) 17 gm PO DAILY PRN PRN Reason: CONSTIPATION Last Admin: 04/03/18 14:02 Dose: 17 gm Polyethylene Glycol/Electrolytes (Miralax*) 17 gm PO DAILY PRN PRN Reason: CONSTIPATION Last Admin: 04/01/18 16:02 Dose: 17 gm Senna (Senokot Tab*) 1 tab PO BEDTIME PRN PRN Reason: CONSTIPATION Last Admin: 04/02/18 21:31 Dose: 1 tab Objective: [] Vital Signs Temp Pulse Resp BP Pulse Ox 98.1 F 62 17 121/65 95 04/04/18 02:41 04/04/18 02:41 04/04/18 02:41 04/04/18 02:41 04/04/18 02:41 Alert and oriented to situation, easily confused by information however easily re-oriented Laying flat in bed in no acute distress HRR, S1S2 LS clear with even and non-labored resp. Upper extremities with good strength and full AROM 0/5 strength bilateral LE Assessment: []87 yo female with new diagnosis of metastatic breast cancer who presented with back pain and paraplegia on palliative AI with plan for palliative RT to T6 this AM. Plan: []1. Cancer: RT as per Dr. Zamora, reasonable to tx. with AI as she may receive some pain benefit - this will unfortunately not be covered by her hospice medicare benefit as it is considered life prolonging therefore working to get increased support at home via VNS and AIM program. - granddaughter is moving from [place] area to be primary healthcare science specialist. 2. Pain: controlled with current regimen and has not needed IV morphine since Dispo: goal home with support 04/06, will need stretcher transport due to paralysis of LEs
[2018-04-04] MEDS: CMCS: Anastrozole (NF) 1 MG TAB PO SCH (10:52)
[2018-04-04] MEDS: Dexamethasone IV* 4 MG/ML 1 ML (4 MG) IV SLOW PU SCH ×2 (10:52→20:53)
[2018-04-04] MEDS: Docusate CAP* 100 MG PO SCH ×2 (10:52→20:52)
[2018-04-04] MEDS: Ibuprofen TAB* 400 MG PO PRN (14:00)
[2018-04-05] MEDS: Heparin VIAL(*) 5000 UNITS/ML VIAL (FIVE THOUSAND) SUBCUT SCH ×3 (05:50→23:24)
[2018-04-05] MEDS: Levothyroxine TAB* 25 MCG TAB PO SCH (05:50)
[2018-04-05] MEDS ORDERED: Ondansetron ODT TAB* 4 MG SL PRN (09:17)
[2018-04-05] MEDS: Dexamethasone IV* 4 MG/ML 1 ML (4 MG) IV SLOW PU SCH (09:21)
--- NOTE | 2018-04-05 09:33 | PN ---
Progress Note - Progress Note Date of Service: 04/05/18 SOAP: Subjective: []Feeling well today and in good spirits. Had radiation to T-spine yesterday, "I didn't even have to move!" Denies pain and discomfort during assessment and moving self somewhat in bed. Still has no LE function. Currently on AI as palliative measure for pain, however hospice will only cover Tamoxifen as hormonal therapy, therefore long discussion with patient and family regarding option of changing medication in order to receive the hospice benefit. Medications: Acetaminophen (Tylenol Tab*) 650 mg PO Q6H PRN PRN Reason: FEVER/PAIN Anastrozole (Arimidex (Nf)) 1 mg PO DAILY [facility] Last Admin: 04/04/18 10:52 Dose: 1 mg Bisacodyl (Dulcolax Supp*) 10 mg NE DAILY PRN PRN Reason: CONSTIPATION Last Admin: 04/03/18 11:24 Dose: 10 mg Cyclobenzaprine HCl (Flexeril Tab*) 10 mg PO TID PRN PRN Reason: SPASMS Dexamethasone (Decadron Tab*) 8 mg PO BID [facility] Docusate Sodium (Colace Cap*) 100 mg PO BID [facility] Last Admin: 04/04/18 20:52 Dose: 100 mg Famotidine (Pepcid Tab*) 20 mg PO DAILY [facility] Heparin Sodium (Porcine) (Heparin Vial(*)) 5,000 units SUBCUT Q8HR [facility] Last Admin: 04/05/18 05:50 Dose: 5,000 units Ibuprofen (Motrin Tab*) 400 mg PO Q6H PRN PRN Reason: PAIN Last Admin: 04/04/18 14:00 Dose: 400 mg Levothyroxine Sodium (Synthroid Tab*) 25 mcg PO DAILY@0600 [facility] Last Admin: 04/05/18 05:50 Dose: 25 mcg Ondansetron HCl (Zofran Odt Tab*) 4 mg SL Q6H PRN PRN Reason: NAUSEA/VOMITING Oxycodone HCl (Roxycodone Tab*) 5 mg PO Q4H PRN PRN Reason: PAIN - MODERATE Last Admin: 03/30/18 00:42 Dose: 5 mg Polyethylene Glycol/Electrolytes (Miralax*) 17 gm PO DAILY PRN PRN Reason: CONSTIPATION Last Admin: 04/03/18 14:02 Dose: 17 gm Polyethylene Glycol/Electrolytes (Miralax*) 17 gm PO DAILY PRN PRN Reason: CONSTIPATION Last Admin: 04/01/18 16:02 Dose: 17 gm Senna (Senokot Tab*) 1 tab PO BEDTIME PRN PRN Reason: CONSTIPATION Last Admin: 04/02/18 21:31 Dose: 1 tab Objective: [] Vital Signs Temp Pulse Resp BP Pulse Ox 97.2 F 62 18 149/79 97 04/05/18 03:13 04/05/18 03:13 04/05/18 03:13 04/05/18 03:13 04/05/18 03:13 A&Ox3, EOMI, involved in conversation, communicating effectively HRR, murmur noted LS clear Good strength = bilat. UEs 0/5 strength bilateral LE, +PP= Assessment: []87 yo female with new diagnosis of metastatic breast cancer who presented with back pain and paraplegia on palliative AI s/p palliative RT to T6 yesterday. Overall doing well with plan for d/c tomorrow AM, however upon review of case now hopeful for hospice on d/c with tamoxifen as this will improve services available to her and family. Plan: []Stop AI and switch to Tamoxifen D/c with hospice, hopeful for services in place due to paralysis >40 min spent with >50% face to face counseling with patient and reviewing options for tx. with family
[2018-04-05] MEDS: Dexamethasone TAB* 4 MG PO SCH ×2 (09:38→23:23)
[2018-04-05] MEDS: Docusate CAP* 100 MG PO SCH ×2 (09:39→23:24)
[2018-04-05] MEDS: Famotidine TAB* 20 MG PO SCH (09:39)
[2018-04-05] MEDS: CMCS: Anastrozole (NF) 1 MG TAB PO SCH (09:39)
[2018-04-05] MEDS: Ibuprofen TAB* 400 MG PO PRN (23:25)
[2018-04-06] MEDS: Heparin VIAL(*) 5000 UNITS/ML VIAL (FIVE THOUSAND) SUBCUT SCH ×3 (07:16→20:10)
[2018-04-06] MEDS: Levothyroxine TAB* 25 MCG TAB PO SCH (07:16)
[2018-04-06] MEDS ORDERED: Tamoxifen TAB* 10 MG PO ONE (09:00)
[2018-04-06] MEDS: Famotidine TAB* 20 MG PO SCH (09:23)
[2018-04-06] MEDS: Dexamethasone TAB* 4 MG PO SCH ×3 (09:23→20:10)
[2018-04-06] MEDS: Docusate CAP* 100 MG PO SCH ×2 (09:24→20:00)
[2018-04-06] MEDS ORDERED: Polyethylene Glycol 3350* 17 GM PACKET PO PRN (09:40)
--- NOTE | 2018-04-06 09:48 | PN ---
Progress Note - Progress Note Date of Service: 04/06/18 SOAP: Subjective: []Overall feeling well and states pain has been controlled. "I'm very happy with my care here." C/o feeling full in the abd, "bigger" to nursing and tells me she feels bloated. Last BM 04/03, last PRN laxatives given 04/03. "I think things are going to get moving soon." Medications: Acetaminophen (Tylenol Tab*) 650 mg PO Q6H PRN PRN Reason: FEVER/PAIN Bisacodyl (Dulcolax Supp*) 10 mg GA DAILY PRN PRN Reason: CONSTIPATION Last Admin: 04/03/18 11:24 Dose: 10 mg Cyclobenzaprine HCl (Flexeril Tab*) 10 mg PO TID PRN PRN Reason: SPASMS Dexamethasone (Decadron Tab*) 8 mg PO BID [facility] Last Admin: 04/06/18 09:23 Dose: 8 mg Docusate Sodium (Colace Cap*) 100 mg PO BID [facility] Last Admin: 04/06/18 09:24 Dose: 100 mg Famotidine (Pepcid Tab*) 20 mg PO DAILY [facility] Last Admin: 04/06/18 09:23 Dose: 20 mg Heparin Sodium (Porcine) (Heparin Vial(*)) 5,000 units SUBCUT Q8HR [facility] Last Admin: 04/06/18 07:16 Dose: 5,000 units Ibuprofen (Motrin Tab*) 400 mg PO Q6H PRN PRN Reason: PAIN Last Admin: 04/05/18 23:25 Dose: 400 mg Levothyroxine Sodium (Synthroid Tab*) 25 mcg PO DAILY@0600 [facility] Last Admin: 04/06/18 07:16 Dose: 25 mcg Ondansetron HCl (Zofran Odt Tab*) 4 mg SL Q6H PRN PRN Reason: NAUSEA/VOMITING Oxycodone HCl (Roxycodone Tab*) 5 mg PO Q4H PRN PRN Reason: PAIN - MODERATE Last Admin: 03/30/18 00:42 Dose: 5 mg Polyethylene Glycol/Electrolytes (Miralax*) 17 gm PO BID PRN PRN Reason: CONSTIPATION Senna (Senokot Tab*) 2 tab PO BEDTIME [facility] Objective: [] Vital Signs Temp Pulse Resp BP Pulse Ox 97.7 F 58 18 118/61 97 04/06/18 07:27 04/06/18 07:27 04/06/18 07:27 04/06/18 07:27 04/06/18 07:27 A&Ox3, EOMI, good strength UEs, bilat. LE paralysis HRR LS clear +BS, abd. soft, round, and non-tender, neg. for organomegaly and asictes +PP=bilat., no edema Assessment: []87 yo with newly diagnosed metastatic hormone receptor positive breast cancer c/b cord compression at T6 with subsequent paralysis of LEs s/p palliative RT on tamoxifen for palliation of pain with plan for d/c to home hospice tomorrow. Overall doing very well considering her advanced disease. Plan: []1. Cancer: cont. Tamoxifen daily, plan d/c to home hospice tomorrow 2. Constipation: r/t lack of mobility, cont scheduled colace bid and plan senna qHS, increase PRNs and recommend use for BM approx q2d 3. Pain: cont. PRN meds, no change today 4. Skin: prevent breakdown, may benefit from air mattress at home Dispo: d/c to home hospice tomorrow, will need stretcher for transport
[2018-04-06] MEDS: Ibuprofen TAB* 400 MG PO PRN (20:07)
[2018-04-06] MEDS ORDERED: Senna TAB PO SCH (21:00)
[2018-04-07] MEDS: Heparin VIAL(*) 5000 UNITS/ML VIAL (FIVE THOUSAND) SUBCUT SCH (06:56)
[2018-04-07] MEDS: Levothyroxine TAB* 25 MCG TAB PO SCH (06:56)
--- NOTE | 2018-04-07 09:09 | DS ---
- Discharge Summary Admission Date: 03/29/18 Discharge Date:04/07/18 Discharge Diagnosis: 1. 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 Newly diagnosed ER+ Metastatic Breast Cancer, [id number]: on palliative tamoxifen, d/c to hospice 3. Hypothyroidism: cont. levothyroxine 4. Constipation: related to lack of mobility, compounded by narcotics, cont. laxatives Discharge Medications: Medication Instructions Recorded Confirmed Type Acetaminophen TAB* [Tylenol TAB*] 650 mg PO Q6H PRN #80 tab 04/07/18 Rx Bisacodyl SUPP* [Dulcolax Supp*] 10 mg LA DAILY PRN #30 supp 04/07/18 Rx Cyclobenzaprine TAB* [Flexeril 10 10 mg PO TID PRN #30 tab 04/07/18 Rx MG TAB*] Dexamethasone TAB* [Decadron TAB*] 8 mg PO BID #40 tab 04/07/18 Rx Docusate CAP* [Colace Cap*] 100 mg PO BID #20 cap 04/07/18 Rx Famotidine TAB* [Pepcid 20 MG TAB*] 20 mg PO DAILY #10 tab 04/07/18 Rx Ibuprofen TAB* [Motrin TAB* 400 MG] 400 mg PO Q6H PRN #20 tab 04/07/18 Rx Levothyroxine TAB* [Synthroid 25 25 mcg PO DAILY@0600 #10 tab 04/07/18 Rx MCG TAB*] Ondansetron ODT TAB* [Zofran 4 MG 4 mg SL Q6H PRN #20 tab 04/07/18 Rx Odt TAB*] Polyethylene Glycol 3350* 17 gm PO BID PRN #20 packet 04/07/18 Rx [Miralax*] Senna TAB* [Senokot TAB*] 2 tab PO BEDTIME #10 tab 04/07/18 Rx oxyCODONE TAB* [Roxycodone TAB 5 5 mg PO Q4H PRN #30 tab MDD 6 tabs 04/07/18 Rx mg*] Hospital Course: Please see admission note for full H&P, however briefly, Miss. Wynn was referred to the ER on 03/29/18 by primary care via [facility] after a progressive loss of function in her LEs over the prior month with new flaccidity seen on exam. In the ER a MRI of the lumbar spine showed extensive narrowing with a large mass at the sacral iliac joint. CT of the head without contrast was negative and a chest x-ray questioned a plural based mass. The family requested admission to this facility for further work-up declining transfer to tertiary center. Neuro consult with Dr. Cornejo recommended MRI of both the T and C spine due to flaccidity with suspicion that surgerical intervention was not warranted as well. On 03/30/18 the patient was seen in consultation by Dr. Servin who noted a large mass in the left breast with inverted nipple. 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 MRI of the T/C spine revealed multiple osteolytic lesions with cord compression at T6. A CT of the Chest/Abd/Pelvis was negative for viseral disease. On 03/31 the patient received a palliative consultation. On 04/01 Miss. Wynn was seen in consultation by Dr. Zamora and agreed to single fraction (800 cGy) palliative RT to the spine, this occured on 04/04. Initially the patient and family decided for discharge home with palliative support services including VNS while continuing AI therapy, however on 04/05 a discussed regarding utility of hospice services with use of Tamoxifen (which can be covered under the hospice benefit due to low cost compared to AI therapy) was presented and the family and patient decided that hospice benefit would provide the most appropriate support. At this time Miss. Wynn is reasonably comfortable stating her pain is generally controlled "If I don't move." She has been resistant to pain medications, but involved in turning and positioning. She presented with constipation and has been managed with laxatives. A this time her skin is intact and she has been eating well. She will be discharged to home with her niece as primary medicare contact specialist and hospice sign on this afternoon. She has singed a DNR. >40 min spent with >50% face to face counseling
[2018-04-07] MEDS: Docusate CAP* 100 MG PO SCH (09:49)
[2018-04-07] MEDS: Famotidine TAB* 20 MG PO SCH (09:49)
[2018-04-07] MEDS: Dexamethasone TAB* 4 MG PO SCH (09:49)
[2018-04-07 09:50] VITALS: BP 109/59
== END 2018-04-07 10:35 | disposition hospice, home (50) | DRG 543 ==
LOC: ED 14:37 → MED 22:40
PROVIDERS: ADMIT Hospitalist; ATTEND Internal Medicine Hematology & Oncology
PROC: DPYC7ZZ Contact Radiation of Other Bone (ICD-10-PCS; principal; 2018-04-01)
DX: C79.51 Secondary malignant neoplasm of bone (principal); G82.20 Paraplegia, unspecified; N39.0 Urinary tract infection, site not specified; G95.20 Unspecified cord compression; Z17.0 Estrogen receptor positive status [ER+]; T40.605A Adverse effect of unspecified narcotics, initial encounter; G89.29 Other chronic pain; M54.9 Dorsalgia, unspecified; M81.0 Age-related osteoporosis without current pathological fracture; M43.9 Deforming dorsopathy, unspecified; R40.2362 Coma scale, best motor response, obeys commands, at arrival to emergency department; R40.2142 Coma scale, eyes open, spontaneous, at arrival to emergency department; R40.2252 Coma scale, best verbal response, oriented, at arrival to emergency department; M48.061 Spinal stenosis, lumbar region without neurogenic claudication; R91.8 Other nonspecific abnormal finding of lung field; R01.1 Cardiac murmur, unspecified; M16.11 Unilateral primary osteoarthritis, right hip; M48.8X8 Other specified spondylopathies, sacral and sacrococcygeal region; R20.0 Anesthesia of skin; Z66 Do not resuscitate; B96.20 Unspecified Escherichia coli [E. coli] as the cause of diseases classified elsewhere; G89.3 Neoplasm related pain (acute) (chronic); M41.9 Scoliosis, unspecified; C50.912 Malignant neoplasm of unspecified site of left female breast; E03.9 Hypothyroidism, unspecified; K59.03 Drug induced constipation; Z92.3 Personal history of irradiation; Z91.018 Allergy to other foods; Z87.891 Personal history of nicotine dependence; Y92.239 Unspecified place in hospital as the place of occurrence of the external cause; N94.89 Other specified conditions associated with female genital organs and menstrual cycle
CPT/HCPCS: 10021; 36415; 70450; 71046; 71250; 72156; 72157; 72158; 74018; 74176; 77014; 77280; 77290; 77307; 77331; 77334; 77412; 80048; 80053; 81003; 81015; 83605; 83735; 83880; 84436; 84443; 84479; 84484; 85025; 86140; 86300; 87077; 87086; 87186; 88172; 88173; 88305; 88360; 93005; 99232; 99233; 99239; 99284; A9270-GY; A9579; J0696; J1100; J1644; J2270; J8540